=== PATIENT | male | born 1980 | race Caucasian/White ===

== ENCOUNTER 2021-07-29 17:30 | Inpatient (IN) | payer SELFPAY ==
[~2021-07-29] VITALS: Ht 182.9 cm; Wt 90.7 kg
[2021-07-29 17:00] VITALS: BP 131/67
[2021-07-29] MEDS ORDERED: WARF4TAB64 PO (18:34)
[2021-07-29 19:00] VITALS: BP 126/57
[2021-07-29] MEDS ORDERED: ELECTROLYTE (NON-ICU) PROTOCOL. MC PRN (19:00)
[2021-07-29] MEDS ORDERED: IV NORMAL SALINE 1000ML BAG 1,000 ML IV SCH (19:00)
[2021-07-29] MEDS ORDERED: ZOLPIDEM 5 MG TABLET. PO PRN (19:00)
[2021-07-29] MEDS ORDERED: PIP/TAZO PER PHARMACY MC PRN (19:00)
[2021-07-29] MEDS ORDERED: CALCIUM CARBONATE 500 MG TAB.CHEW PO PRN (19:00)
[2021-07-29] MEDS ORDERED: oxyCODONE IR 5 MG TABLET PO PRN (19:00)
[2021-07-29] MEDS ORDERED: ONDANSETRON PF 4 MG/2 ML VIAL. IVP PRN (19:00)
[2021-07-29] MEDS: MULTIVIT INFUSN,ADULT 4,VIT K 10 ML, THIAMINE INJ 100 MG, FOLIC ACID INJ 1 MG in IV NOR... IV SCH (20:06)
[2021-07-29] MEDS: CIPROFLOXACIN 400MG PREMIX 200 ML IV SCH (20:07)
[2021-07-29] MEDS: metroNIDAZOLE 500 MG TABLET PO SCH (20:07)
[2021-07-29] MEDS: oxyCODONE IR 5 MG TABLET PO PRN (20:07)
[2021-07-29] MEDS: SENNOSIDES/DOCUSATE 8.6/50MG TABLET. PO SCH (20:07)
[2021-07-29 20:11] LABS: BASO # 0.1 x10^3/uL (0.0-0.2); BASO % 1 % (0-3); EOS # 0.1 x10^3/uL (0.0-0.7); EOS % 1 % (0-3); LYMPH % 18 % (24-48); MEAN CORPUSCULAR HEMOGLOBIN 38 pg (25-35); MEAN CORPUSCULAR HGB CONC 36 g/dL (31-37); MEAN CORPUSCULAR VOLUME 106 fL (79-100); MONO # 1.3 x10^3/uL (0.0-1.1); MONO % 12 % (0-9); NEUT # 7.3 x10^3/uL (1.8-7.7); NEUT % 67 % (31-73); PLATELET COUNT 149 x10^3/uL (140-400); RED BLOOD COUNT 1.49 x10^6/uL (4.30-5.70); RED CELL DISTRIBUTION WIDTH 21.2 % (11.5-14.5); WHITE BLOOD COUNT 10.8 x10^3/uL (4.0-11.0)
[2021-07-29 20:17] LABS: HEMATOCRIT 15.7 % (39.0-53.0); HEMOGLOBIN 5.7 g/dL (13.0-17.5)
[2021-07-29 20:19] LABS: PROTHROMBIN TIME PATIENT 25.3 SEC (11.7-14.0)
[2021-07-29 20:38] LABS: PLT ESTIMATE ADEQUATE (ADEQUATE)
[2021-07-29 20:39] LABS: ANISOCYTOSIS MOD; HYPOCHROMIA SLIGHT
[2021-07-29 20:40] LABS: POLYCHROMASIA MOD
[2021-07-29 21:10] LABS: ALBUMIN 1.4 g/dL (3.4-5.0); ALBUMIN/GLOBULIN RATIO 0.4 (1.0-1.7); CALCIUM 6.6 mg/dL (8.5-10.1); CREATININE 0.9 mg/dL (0.7-1.3); GFR 92.1; POTASSIUM 3.1 mmol/L (3.5-5.1); TOTAL BILIRUBIN 14.9 mg/dL (0.2-1.0); TOTAL PROTEIN 5.4 g/dL (6.4-8.2)
[2021-07-29 23:00] VITALS: BP 110/50
--- NOTE | 2021-07-29 23:57 | RAD ---
EXAM: RIGHT UPPER QUADRANT ULTRASOUND. HISTORY: Abdominal pain, cirrhosis. COMPARISON: None. FINDINGS: Sonographic evaluation of the right upper quadrant was performed. Mild hepatic surface nodularity is consistent with cirrhotic change. Hepatic parenchymal hyperechogen icity is consistent with a component of diffuse hepatic steatosis. There are no focal lesions by ultr asound. There is a small amount of perihepatic ascites. The spleen is enlarged at 16.8 cm. Gallstones and biliary sludge are noted. There is no pericholecystic fluid or wall thickening. There is no sonographic Saul sign. The common duct measures 4 mm. The visualized portions of the head of the pancreas reveal no abnormality. The right kidney measures 11.1 cm. Cortical thickness and echogenicity are preserved. There is no hyd ronephrosis. The visualized portions of the abdominal aorta and inferior vena cava are grossly patent and normal i n caliber. IMPRESSION: 1. Morphologic changes of cirrhosis. Small ascites. Moderate splenomegaly. Next were 2. Cholelithiasis and biliary sludge. No clear changes of acute cholecystitis by ultrasound. Correlat e with other data. Electronically signed by: Claudio Boyer MD (07/29/2021 11:55 PM) LAURA
[2021-07-30] VITALS (16 sets, daily range): BP systolic 109–148; BP diastolic 43–66
[2021-07-30] MEDS: metroNIDAZOLE 500 MG TABLET PO SCH (06:06)
[2021-07-30 06:37] LABS: CLARITY,URINE CLEAR; COLOR,URINE ORANGE
[2021-07-30 06:46] LABS: BACTERIA,URINE 0 /HPF (0-FEW); RBC,URINE 0 /HPF (0-2); WBC,URINE 0 /HPF (0-4)
[2021-07-30] MEDS: VITAMIN B12,B9,B6 COMPLEX 1 TABLET. PO SCH (07:53)
[2021-07-30] MEDS: SENNOSIDES/DOCUSATE 8.6/50MG TABLET. PO SCH ×2 (07:53→20:28)
[2021-07-30] MEDS: CIPROFLOXACIN 400MG PREMIX 200 ML IV SCH (07:53)
[2021-07-30] MEDS ORDERED: SPIRONOLACTONE 25 MG TABLET PO SCH (09:00)
[2021-07-30 09:25] LABS: HEMATOCRIT 19.5 % (39.0-53.0); HEMOGLOBIN 6.8 g/dL (13.0-17.5)
--- NOTE | 2021-07-30 09:40 | NUR ---
SW following. Discussed with RN, pt from home, room air, NPO. GI following. Pt received blood and hgn still 6.8. Med Assist following for self pay status. SW will continue to follow.
--- NOTE | 2021-07-30 10:21 | PDOC2 ---
GI CONSULT Date of Service: DATE: 07/30/21 TIME: 10:02 Reason For Consult: Tbili 15.9, abd pain HPI: HPI: 41 y/o male evaluated at [facility] for bleeding from cheek laceration. H/o factor V Leiden on Warfarin prescribed by [facility]. At [facility]: WBC 12.6, Hgb 5.3, MCV 115, plt 175, Na 133, K 3, BUN 11, Cr 0.9, bili 15.2, direct 10.2, AST 133, ALT 32, Alk Phos 105, ammonia 25, lipase 232, COVID negative. CT w/ cholelithiasis w/ superimposed GB distention and wall thickening and surrounding stranding, suspected hepatic cirrhosis and changes related to portal hypertension, mildd diffuse bowel wall thickening due to presence os small ascites and mesenteric stranding, diverticulosis, splenomegaly and splenorenal shunt and prominent collateral vessels within mesentery and retroperitoneum. Here: INR is 2.4 and viral Hepatitis panel is negative. Iron sat 65, B12 >1700. US shows cirrhosis, small ascites, moderate splenomegaly, cholelithiasis and biliary sludge, and CBD 4mm. GI-brito, he reports h/o liver disease - "well alcohol's a part of it." H/o heavy drinking - sober since "before ." Has had some abdominal cramping and jaundice since around that time. Recalls previous paracentesis <5 years ago at [facility] - details unclear. No other information re: liver history. Denies obvious GI bleeding. Occasional reflux depending on what he eats improved w/ Tums PRN. No dysphagia, n/v, hematemesis, diarrhea, constipation, hematochezia, melena, or change in appetite or weight. No previous EGD or colonoscopy. No GB, pancreas, or PUD history. No NSAIDs. Reports home meds also include spironolactone, folate, and vitamin C. Additionally reports h/o "the valves in my legs don't work." PMH: PMH: per HPI FH: Family History: No pertinent hx (denies GI cancers) Social History: ALCOHOL: heavy (sober since 06/2021) ROS: GEN: Denies fevers, chills, sweats HEENT: Denies blurred vision, sore throat CV: Denies chest pain RESP: Denies shortness of air, cough GI: Per HPI : Denies hematuria, dysuria ENDO: Denies weight changes NEURO: Denies confusion, dizziness MSK: Denies weakness, joint pain/swelling SKIN: +jaundice +cheek wound/bleeding Vitals: Vitals: Vital Signs Date Time Temp Pulse Resp B/P (MAP) Pulse Ox O2 Delivery O2 Flow Rate FiO2 07/30/21 06:50 98.4 110 20 128/61 (83) 100 Room Air 98.4 Labs: Labs: Laboratory Tests Test 07/29/21 19:48 07/30/21 05:55 07/30/21 08:55 White Blood Count 10.8 x10^3/uL (4.0-11.0) Red Blood Count 1.49 x10^6/uL (4.30-5.70) Hemoglobin 5.7 g/dL (13.0-17.5) 6.8 g/dL (13.0-17.5) Hematocrit 15.7 % (39.0-53.0) 19.5 % (39.0-53.0) Mean Corpuscular Volume 106 fL (79-100) Mean Corpuscular Hemoglobin 38 pg (25-35) Mean Corpuscular Hemoglobin Concent 36 g/dL (31-37) Red Cell Distribution Width 21.2 % (11.5-14.5) Platelet Count 149 x10^3/uL (140-400) Neutrophils (%) (Auto) 67 % (31-73) Lymphocytes (%) (Auto) 18 % (24-48) Monocytes (%) (Auto) 12 % (0-9) Eosinophils (%) (Auto) 1 % (0-3) Basophils (%) (Auto) 1 % (0-3) Neutrophils # (Auto) 7.3 x10^3/uL (1.8-7.7) Lymphocytes # (Auto) 2.0 x10^3/uL (1.0-4.8) Monocytes # (Auto) 1.3 x10^3/uL (0.0-1.1) Eosinophils # (Auto) 0.1 x10^3/uL (0.0-0.7) Basophils # (Auto) 0.1 x10^3/uL (0.0-0.2) Platelet Estimate Adequate (ADEQUATE) Polychromasia Mod Hypochromasia Slight Basophilic Stippling Present Anisocytosis Mod Macrocytosis Slight Prothrombin Time 25.3 SEC (11.7-14.0) Prothromb Time International Ratio 2.4 (0.8-1.1) Activated Partial Thromboplast Time 51 SEC (24-38) Sodium Level 132 mmol/L (136-145) Potassium Level 3.1 mmol/L (3.5-5.1) Chloride Level 101 mmol/L (98-107) Carbon Dioxide Level 23 mmol/L (21-32) Anion Gap 8 (6-14) Blood Urea Nitrogen 12 mg/dL (8-26) Creatinine 0.9 mg/dL (0.7-1.3) Estimated GFR (Cockcroft-Gault) 92.1 BUN/Creatinine Ratio 13 (6-20) Glucose Level 107 mg/dL (70-99) Calcium Level 6.6 mg/dL (8.5-10.1) Iron Level 66 ug/dL (65-175) Total Iron Binding Capacity 102 ug/dL (250-450) Iron Saturation 65 % (15-34) Total Bilirubin 14.9 mg/dL (0.2-1.0) Aspartate Amino Transf (AST/SGOT) 103 U/L (15-37) Alanine Aminotransferase (ALT/SGPT) 32 U/L (16-63) Alkaline Phosphatase 93 U/L (46-116) Total Protein 5.4 g/dL (6.4-8.2) Albumin 1.4 g/dL (3.4-5.0) Albumin/Globulin Ratio 0.4 (1.0-1.7) Lipase 265 U/L (73-393) Vitamin B12 Level 1703 pg/mL (247-911) Hepatitis A IgM Antibody Nonreactive (Nonreactive) Hepatitis B Surface Antigen Nonreactive (Nonreactive) Hepatitis B Core IgM Antibody Nonreactive (Nonreactive) Hepatitis C IgG Antibody Nonreactive (Nonreactive) HIV (1&2) Antibody Screen Nonreactive (Nonreactive) Urine Collection Type Unknown Urine Color [place] Urine Clarity Clear Urine pH (<5.0-8.0) Urine Specific [place] (1.000-1.030) Urine Protein mg/dL (NEG-TRACE) Urine Glucose (UA) mg/dL (NEG) Urine Ketones (Stick) mg/dL (NEG) Urine Blood (NEG) Urine Nitrite (NEG) Urine Bilirubin (NEG) Urine Urobilinogen Dipstick mg/dL (0.2 mg/dL) Urine Leukocyte Esterase (NEG) Urine RBC 0 /HPF (0-2) Urine WBC 0 /HPF (0-4) Urine Squamous Epithelial Cells Occ /LPF Urine Bacteria 0 /HPF (0-FEW) Allergies: Coded Allergies: Penicillins (Verified Allergy, Intermediate, 07/29/21) shellfish derived (Verified Allergy, Intermediate, 07/29/21) Medications: Current Medications Medications (Trade) Dose Ordered Sig/Barbara Route PRN Reason Start Time Stop Time Status Last Admin Dose Admin Multivitamins 10 ml/Thiamine HCl 100 mg/Folic Acid 1 mg/Sodium Chloride 1,011.2 ml @ 100 mls/ hr QHS IV 07/29/21 19:00 08/03/21 07:07 07/29/21 20:06 Vitamin B Complex (Folbic Tablet) 1 tab DAILY PO 07/30/21 09:00 07/30/21 07:53 Sodium Chloride 1,000 ml @ 100 mls/hr Q10H IV 07/29/21 19:00 07/30/21 04:59 DC 07/29/21 20:06 Oxycodone HCl (Roxicodone) 10 mg PRN Q4HRS PRN PO MODERATE PAIN, SEVERE PAIN 07/29/21 19:00 07/29/21 20:07 Senna/Docusate Sodium (Senna Plus) 1 tab BID PO 07/29/21 21:00 07/30/21 07:53 Spironolactone (Aldactone) 25 mg DAILY PO 07/30/21 09:00 07/30/21 07:54 Ciprofloxacin/ Dextrose 200 ml @ 200 mls/hr Q12HR IV 07/29/21 21:00 07/30/21 07:53 Metronidazole (Flagyl) 500 mg Q8HRS PO 07/29/21 22:00 07/30/21 06:06 Imaging: Imaging: Abd US FINDINGS: Sonographic evaluation of the right upper quadrant was performed. Mild hepatic surface nodularity is consistent with cirrhotic change. Hepatic parenchymal hyperechogenicity is consistent with a component of diffuse hepatic steatosis. There are no focal lesions by ultrasound. There is a small amount of perihepatic ascites. The spleen is enlarged at 16.8 cm. Gallstones and biliary sludge are noted. There is no pericholecystic fluid or wall thickening. There is no sonographic Saul sign. The common duct measures 4 mm. The visualized portions of the head of the pancreas reveal no abnormality. The right kidney measures 11.1 cm. Cortical thickness and echogenicity are preserved. There is no hydronephrosis. The visualized portions of the abdominal aorta and inferior vena cava are grossly patent and normal in caliber. IMPRESSION: 1. Morphologic changes of cirrhosis. Small ascites. Moderate splenomegaly. Next were 2. Cholelithiasis and biliary sludge. No clear changes of acute cholecystitis by ultrasound. Correlate with other data. PE: GEN: appears chronically ill HEENT: Atraumatic, +sclerae icteric LUNGS: CTAB anteriorly HEART: tachycardic ABD: some distention, soft, not particularly tender EXTREMITY: BLE w/ edema/chronic skin changes SKIN: +jaundice, telangiectasia (chest, cheeks) NEURO/PSYCH: A & O 3 - bit difficult to rouse, but then participated appropriately in interview A/P: A/P: Suspected alcoholic hepatitis/cirrhosis/portal hypertension Profound anemia - no obvious GI bleeding, iron sat elevated Occasional reflux CRC screen - none/average risk Cholelithiasis, GB sludge, normal CBD H/o Factor V Leiden on Warfarin COVID negative -- Check hemachromatosis for completeness. Agree w/ transfusion plans. Denies obvious GI bleeding. Observe, follow labs. Withdrawal precautions per primary. ?need for antibiotics Low suspicion for acute cholecystitis. Encouraged sobriety long-term. ABIGAIL ALVAREZ Jul 30, 2021 10:21
[2021-07-30] MEDS: oxyCODONE IR 5 MG TABLET PO PRN ×3 (11:03→20:39)
[2021-07-30] MEDS ORDERED: LIDO:MAALOX 1:1 20 ML SINGLE DOSE. PO PRN (12:30)
--- NOTE | 2021-07-30 12:48 | PDOC1 ---
History and Physical Date of Service: DOS: DATE: 07/30/21 TIME: 12:36 Chief Complaint: Chief Complain: wound check History of Present Illness: HPI: Patient is a 41-year-old white male presented to outside emergency room yesterday due to a wound on his left cheek that it is continuing to bleed; he does have a history of factor V Leiden on home Coumadin. She was actually seen in that same emergency room on July 21 where he was provided Dermabond and bleeding was controlled when he left the ER there. During that presentation he was noted to be very jaundiced and the labs were consistent with liver failure. It was recommended he be transferred here for further evaluation but he left AGAINST MEDICAL ADVICE at that time. When he presented yesterday he was notably still jaundiced report that it was even worse had worsening edema in his lower extremities. Labs consistent with ongoing liver failure. He was agreeable to transfer here this time for further evaluation. When I evaluated the patient he was resting in bed complaining of some abdominal pain. Patient said that his alcohol use really has not been any since the new year. He does have a long history of alcohol use and knows he has liver problems but has never seen a doctor for them. Thinks he may have had a paracentesis sometime? Past Medical/Surgical History: PMH/PSH: Factor V Leiden Allergies: Allergies: Coded Allergies: Penicillins (Verified Allergy, Intermediate, 07/29/21) shellfish derived (Verified Allergy, Intermediate, 07/29/21) Family History: Family History: Hypertension Social History: Social History: Previous alcohol use. Denies drug or tobacco use Current Medications: Current Medications Current Medications Multivitamins 10 ml/Thiamine HCl 100 mg/Folic Acid 1 mg/Sodium Chloride 1,011.2 ml @ 100 mls/ hr QHS IV Last administered on 07/29/21at 20:06; Start 07/29/21 at 19:00; Stop 08/03/21 at 07:07 Multivitamins (Thera M Plus) 1 tab DAILY PO ; Start 08/03/21 at 09:00 Folic Acid (Folic Acid) 1 mg DAILY PO ; Start 08/03/21 at 09:00; Status UNV Thiamine Mononitrate (Vitamin B-1) 100 mg DAILY PO ; Start 08/03/21 at 09:00 Lorazepam (Ativan) 4 mg PRN Q1HR PRN PO For CIWA 8-14; Start 07/29/21 at 18:45 Lorazepam (Ativan) 8 mg PRN Q1HR PRN PO For CIWA 15 or greater; Start 07/29/21 at 18:45 Vitamin B Complex (Folbic Tablet) 1 tab DAILY PO Last administered on 07/30/21at 07:53; Start 07/30/21 at 09:00 Folic Acid (Folic Acid) 1 mg DAILY PO ; Start 08/03/21 at 09:00 Piperacillin Sod/ Tazobactam Sod (Zosyn Per Pharmacy) 1 each PRN DAILY PRN MC SEE COMMENTS; Start 07/29/21 at 19:00; Stop 07/29/21 at 18:58; Status DC Sodium Chloride 1,000 ml @ 100 mls/hr Q10H IV Last administered on 07/29/21at 20:06; Start 07/29/21 at 19:00; Stop 07/30/21 at 04:59; Status DC Ondansetron HCl (Zofran) 4 mg PRN Q6HRS PRN IVP NAUSEA/VOMITING; Start 07/29/21 at 19:00 Calcium Carbonate/ Glycine (Tums) 500 mg PRN Q3HRS PRN PO UPSET STOMACH; Start 07/29/21 at 19:00 Zolpidem Tartrate (Ambien) 5 mg PRN QHS PRN PO INSOMNIA, MAY REPEAT IN 1HR; Start 07/29/21 at 19:00 Info (Non-Icu Electrolyte Protocol) 1 ea PRN DAILY PRN MC SEE COMMENTS; Start 07/29/21 at 19:00 Oxycodone HCl (Roxicodone) 5 mg PRN Q4HRS PRN PO MILD PAIN, 1ST CHOICE; Start 07/29/21 at 19:00 Oxycodone HCl (Roxicodone) 10 mg PRN Q4HRS PRN PO MODERATE PAIN, SEVERE PAIN Last administered on 07/30/21at 11:03; Start 07/29/21 at 19:00 Senna/Docusate Sodium (Senna Plus) 1 tab BID PO Last administered on 07/30/21at 07:53; Start 07/29/21 at 21:00 Spironolactone (Aldactone) 25 mg DAILY PO Last administered on 07/30/21at 07:54; Start 07/30/21 at 09:00 Ciprofloxacin/ Dextrose 200 ml @ 200 mls/hr Q12HR IV Last administered on 07/30/21at 07:53; Start 07/29/21 at 21:00; Stop 07/30/21 at 11:40; Status DC Metronidazole (Flagyl) 500 mg Q8HRS PO Last administered on 07/30/21at 06:06; Start 07/29/21 at 22:00; Stop 07/30/21 at 11:40; Status DC Multi-Ingredient Mouthwash/Gargle (Gi Cocktail) 20 ml PRN QID PRN PO CHEST PAIN; Start 07/30/21 at 12:30 Active Scripts Active Reported Warfarin Sodium 4 Mg Tablet 4 Mg PO DAILY ROS: Review of Systems Review of System Unless noted in HPI 14 point review of systems was negative Physical Exam: Vital Signs: Vital Signs Date Time Temp Pulse Resp B/P (MAP) Pulse Ox O2 Delivery O2 Flow Rate FiO2 07/30/21 12:17 98.9 108 30 135/56 98.9 07/30/21 12:06 98 Room Air Physcial Exam: GEN: No apparent distress. Alert and oriented HEENT: Erythematous rash on forehead and cheeks kind of obscured by his lanza EYES: Extraocular muscles are intact, pupil are equally round and reactive to light and accommodation MUSCULOSKELETAL: Well developed , well nourished, good range of motion ENDOCRINE: No thyromegaly was palpated LYMPHATICS: No cervical chain or axillary nodes were noted HEMATOPOIETIC: No bruising NECK: Supple, no JVD, no thyromegaly was noted LUNGS: Clear to auscultation in all lung [place] without rhonchi or wheezing HEART: RRR, S!, S2 present. Peripheral pulses intact, no obvious murmurs noted ABDOMEN: Soft, nontender. Positive bowel sounds, no organomegaly, normal bowel sounds EXTREMITIES: Bilateral lower extremity edema up to the level of the scrotum NEUROLOGIC: Normal speech and tone. A&O x 3, moves all extremities, no obvious focal deficits PSYCHIATRIC: Normal affect, normal mood. Stable SKIN: Jaundiced throughout VASCULAR: Good capillary refill, neurovascular bundle appears to be intact Labs: Labs: Laboratory Tests Test 07/29/21 19:48 07/30/21 05:55 07/30/21 08:55 White Blood Count 10.8 x10^3/uL (4.0-11.0) Red Blood Count 1.49 x10^6/uL (4.30-5.70) Hemoglobin 5.7 g/dL (13.0-17.5) 6.8 g/dL (13.0-17.5) Hematocrit 15.7 % (39.0-53.0) 19.5 % (39.0-53.0) Mean Corpuscular Volume 106 fL (79-100) Mean Corpuscular Hemoglobin 38 pg (25-35) Mean Corpuscular Hemoglobin Concent 36 g/dL (31-37) Red Cell Distribution Width 21.2 % (11.5-14.5) Platelet Count 149 x10^3/uL (140-400) Neutrophils (%) (Auto) 67 % (31-73) Lymphocytes (%) (Auto) 18 % (24-48) Monocytes (%) (Auto) 12 % (0-9) Eosinophils (%) (Auto) 1 % (0-3) Basophils (%) (Auto) 1 % (0-3) Neutrophils # (Auto) 7.3 x10^3/uL (1.8-7.7) Lymphocytes # (Auto) 2.0 x10^3/uL (1.0-4.8) Monocytes # (Auto) 1.3 x10^3/uL (0.0-1.1) Eosinophils # (Auto) 0.1 x10^3/uL (0.0-0.7) Basophils # (Auto) 0.1 x10^3/uL (0.0-0.2) Platelet Estimate Adequate (ADEQUATE) Polychromasia Mod Hypochromasia Slight Basophilic Stippling Present Anisocytosis Mod Macrocytosis Slight Prothrombin Time 25.3 SEC (11.7-14.0) Prothromb Time International Ratio 2.4 (0.8-1.1) Activated Partial Thromboplast Time 51 SEC (24-38) Sodium Level 132 mmol/L (136-145) Potassium Level 3.1 mmol/L (3.5-5.1) Chloride Level 101 mmol/L (98-107) Carbon Dioxide Level 23 mmol/L (21-32) Anion Gap 8 (6-14) Blood Urea Nitrogen 12 mg/dL (8-26) Creatinine 0.9 mg/dL (0.7-1.3) Estimated GFR (Cockcroft-Gault) 92.1 BUN/Creatinine Ratio 13 (6-20) Glucose Level 107 mg/dL (70-99) Calcium Level 6.6 mg/dL (8.5-10.1) Iron Level 66 ug/dL (65-175) Total Iron Binding Capacity 102 ug/dL (250-450) Iron Saturation 65 % (15-34) Total Bilirubin 14.9 mg/dL (0.2-1.0) Aspartate Amino Transf (AST/SGOT) 103 U/L (15-37) Alanine Aminotransferase (ALT/SGPT) 32 U/L (16-63) Alkaline Phosphatase 93 U/L (46-116) Total Protein 5.4 g/dL (6.4-8.2) Albumin 1.4 g/dL (3.4-5.0) Albumin/Globulin Ratio 0.4 (1.0-1.7) Lipase 265 U/L (73-393) Vitamin B12 Level 1703 pg/mL (247-911) Hepatitis A IgM Antibody Nonreactive (Nonreactive) Hepatitis B Surface Antigen Nonreactive (Nonreactive) Hepatitis B Core IgM Antibody Nonreactive (Nonreactive) Hepatitis C IgG Antibody Nonreactive (Nonreactive) HIV (1&2) Antibody Screen Nonreactive (Nonreactive) Urine Collection Type Unknown Urine Color [place] Urine Clarity Clear Urine pH (<5.0-8.0) Urine Specific [place] (1.000-1.030) Urine Protein mg/dL (NEG-TRACE) Urine Glucose (UA) mg/dL (NEG) Urine Ketones (Stick) mg/dL (NEG) Urine Blood (NEG) Urine Nitrite (NEG) Urine Bilirubin (NEG) Urine Urobilinogen Dipstick mg/dL (0.2 mg/dL) Urine Leukocyte Esterase (NEG) Urine RBC 0 /HPF (0-2) Urine WBC 0 /HPF (0-4) Urine Squamous Epithelial Cells Occ /LPF Urine Bacteria 0 /HPF (0-FEW) Laboratory Tests Test 07/29/21 19:48 07/30/21 05:55 07/30/21 08:55 White Blood Count 10.8 x10^3/uL (4.0-11.0) Red Blood Count 1.49 x10^6/uL (4.30-5.70) Hemoglobin 5.7 g/dL (13.0-17.5) 6.8 g/dL (13.0-17.5) Hematocrit 15.7 % (39.0-53.0) 19.5 % (39.0-53.0) Mean Corpuscular Volume 106 fL (79-100) Mean Corpuscular Hemoglobin 38 pg (25-35) Mean Corpuscular Hemoglobin Concent 36 g/dL (31-37) Red Cell Distribution Width 21.2 % (11.5-14.5) Platelet Count 149 x10^3/uL (140-400) Neutrophils (%) (Auto) 67 % (31-73) Lymphocytes (%) (Auto) 18 % (24-48) Monocytes (%) (Auto) 12 % (0-9) Eosinophils (%) (Auto) 1 % (0-3) Basophils (%) (Auto) 1 % (0-3) Neutrophils # (Auto) 7.3 x10^3/uL (1.8-7.7) Lymphocytes # (Auto) 2.0 x10^3/uL (1.0-4.8) Monocytes # (Auto) 1.3 x10^3/uL (0.0-1.1) Eosinophils # (Auto) 0.1 x10^3/uL (0.0-0.7) Basophils # (Auto) 0.1 x10^3/uL (0.0-0.2) Platelet Estimate Adequate (ADEQUATE) Polychromasia Mod Hypochromasia Slight Basophilic Stippling Present Anisocytosis Mod Macrocytosis Slight Prothrombin Time 25.3 SEC (11.7-14.0) Prothromb Time International Ratio 2.4 (0.8-1.1) Activated Partial Thromboplast Time 51 SEC (24-38) Sodium Level 132 mmol/L (136-145) Potassium Level 3.1 mmol/L (3.5-5.1) Chloride Level 101 mmol/L (98-107) Carbon Dioxide Level 23 mmol/L (21-32) Anion Gap 8 (6-14) Blood Urea Nitrogen 12 mg/dL (8-26) Creatinine 0.9 mg/dL (0.7-1.3) Estimated GFR (Cockcroft-Gault) 92.1 BUN/Creatinine Ratio 13 (6-20) Glucose Level 107 mg/dL (70-99) Calcium Level 6.6 mg/dL (8.5-10.1) Iron Level 66 ug/dL (65-175) Total Iron Binding Capacity 102 ug/dL (250-450) Iron Saturation 65 % (15-34) Total Bilirubin 14.9 mg/dL (0.2-1.0) Aspartate Amino Transf (AST/SGOT) 103 U/L (15-37) Alanine Aminotransferase (ALT/SGPT) 32 U/L (16-63) Alkaline Phosphatase 93 U/L (46-116) Total Protein 5.4 g/dL (6.4-8.2) Albumin 1.4 g/dL (3.4-5.0) Albumin/Globulin Ratio 0.4 (1.0-1.7) Lipase 265 U/L (73-393) Vitamin B12 Level 1703 pg/mL (247-911) Hepatitis A IgM Antibody Nonreactive (Nonreactive) Hepatitis B Surface Antigen Nonreactive (Nonreactive) Hepatitis B Core IgM Antibody Nonreactive (Nonreactive) Hepatitis C IgG Antibody Nonreactive (Nonreactive) HIV (1&2) Antibody Screen Nonreactive (Nonreactive) Urine Collection Type Unknown Urine Color [place] Urine Clarity Clear Urine pH (<5.0-8.0) Urine Specific [place] (1.000-1.030) Urine Protein mg/dL (NEG-TRACE) Urine Glucose (UA) mg/dL (NEG) Urine Ketones (Stick) mg/dL (NEG) Urine Blood (NEG) Urine Nitrite (NEG) Urine Bilirubin (NEG) Urine Urobilinogen Dipstick mg/dL (0.2 mg/dL) Urine Leukocyte Esterase (NEG) Urine RBC 0 /HPF (0-2) Urine WBC 0 /HPF (0-4) Urine Squamous Epithelial Cells Occ /LPF Urine Bacteria 0 /HPF (0-FEW) Assessment/Plan Assessment/Plan Liver cirrhosis suspect alcoholic. Work-up for hemochromatosis. Anemia history of alcohol use. Small volume ascites. Hx Factor 5 Leiden on home Warfarin -Patient transferred from outside emergency room yesterday for further evaluation of liver failure -Notably low hemoglobin. Transfuse and recheck. Basic anemia work-up -LFTs elevated throughout. Consult to GI. -Mild ascites and lower extremity edema. Will start patient on low-dose Aldactone and increase as needed -Should ascites worsening happy to perform bedside paracentesis if needed -Low hemoglobin and INR 2.4 we will hold off warfarin for the moment. Daily INR checks. No apparent bleeding -Check abdominal ultrasound -Home meds resumed as indicated -We will at least start DVT prophylaxis -Salt restricted fluid restricted diet Justifications for Admission Other Justification MARIBETH STRONG MD Jul 30, 2021 12:48
[2021-07-30] MEDS: MULTIVIT INFUSN,ADULT 4,VIT K 10 ML, THIAMINE INJ 100 MG, FOLIC ACID INJ 1 MG in IV NOR... IV SCH (20:28)
[2021-07-31 03:00] VITALS: BP 151/58
[2021-07-31 06:10] LABS: PROTHROMBIN TIME PATIENT 25.2 SEC (11.7-14.0)
[2021-07-31] MEDS: oxyCODONE IR 5 MG TABLET PO PRN ×4 (06:40→23:14)
[2021-07-31 07:00] VITALS: BP 132/56
[2021-07-31] MEDS: SENNOSIDES/DOCUSATE 8.6/50MG TABLET. PO SCH ×2 (09:00→21:07)
[2021-07-31] MEDS: VITAMIN B12,B9,B6 COMPLEX 1 TABLET. PO SCH (09:19)
[2021-07-31] MEDS: FOLIC ACID 1 MG TABLET. PO SCH (09:19)
[2021-07-31] MEDS: MULTIVITAMIN with MINERAL TABLET. PO SCH (09:19)
[2021-07-31] MEDS: THIAMINE 100 MG TABLET. PO SCH (09:19)
[2021-07-31] MEDS: SPIRONOLACTONE 25 MG TABLET PO SCH (09:20)
--- NOTE | 2021-07-31 10:03 | PDOC ---
Date of Service: DATE: 07/31/21 TIME: 09:53 Subjective: Subjective: Doing okay. Pain across upper abdomen w/ movement. Tolerating diet w/o abdominal pain or n/v. Reports blood in urine but "I'm colorblind." Objective: Vital Signs: Vital Signs Date Time Temp Pulse Resp B/P (MAP) Pulse Ox O2 Delivery O2 Flow Rate FiO2 07/31/21 09:19 Room Air 07/31/21 07:00 98.6 108 17 132/56 (81) 95 98.6 Labs: Laboratory Tests Test 07/31/21 05:05 Prothrombin Time 25.2 SEC Prothromb Time International Ratio 2.3 PE: GEN: NAD LUNGS: CTAB HEART: mildly tachycardic ABD: not particularly tender, soft, maybe mild distention (stable) EXTREMITY: BLE edema/chronic skin changes SKIN: +jaundice +telangiectasias NEURO/PSYCH: A & O 3 A/P: Suspected alcoholic hepatitis/cirrhosis Macrocytic anemia - s/p transfusions yesterday, no obvious GI bleeding - not B12 or iron deficient ?hematuria H/o Factor V Leiden - Warfarin held -- Rechecking labs after transfusion, HFE pending. Continue salt restriction, Aldactone, sobriety. Empiric acid-hide cleaner. Will d/w Dr. Vargas re: resuming Warfarin. Justicifation of Admission Dx: Justifications for Admission: Justification of Admission Dx: Yes ABIGAIL ALVAREZ Jul 31, 2021 10:03
[2021-07-31 10:04] LABS: HEMOGLOBIN 7.7 g/dL (13.0-17.5); RED BLOOD COUNT 2.22 x10^6/uL (4.30-5.70); RED CELL DISTRIBUTION WIDTH 22.2 % (11.5-14.5); WHITE BLOOD COUNT 13.8 x10^3/uL (4.0-11.0)
[2021-07-31 10:12] LABS: ALBUMIN 1.5 g/dL (3.4-5.0); ALBUMIN/GLOBULIN RATIO 0.4 (1.0-1.7); CALCIUM 6.2 mg/dL (8.5-10.1); CREATININE 0.8 mg/dL (0.7-1.3); GFR 105.5; POTASSIUM 3.5 mmol/L (3.5-5.1); TOTAL BILIRUBIN 17.2 mg/dL (0.2-1.0); TOTAL PROTEIN 5.5 g/dL (6.4-8.2)
[2021-07-31 11:00] VITALS: BP 127/49
[2021-07-31] MEDS: PANTOPRAZOLE 40 MG TABLET.DR. PO SCH (12:21)
--- NOTE | 2021-07-31 12:45 | PDOC ---
[employer] PROGRESS NOTE Date of Service DOS: DATE: 07/31/21 TIME: 12:44 Chief Complaint Chief Complaint Liver cirrhosis suspect alcoholic. Work-up for hemochromatosis. Anemia history of alcohol use. Small volume ascites. Hx Factor 5 Leiden on home Warfarin -Patient transferred from outside emergency room yesterday for further evaluation of liver failure -Notably low hemoglobin. Transfuse and recheck. Basic anemia work-up -LFTs elevated throughout. Consult to GI. -Mild ascites and lower extremity edema. Will start patient on low-dose Aldactone and increase as needed -Should ascites worsening happy to perform bedside paracentesis if needed -Low hemoglobin and INR 2.4 we will hold off warfarin for the moment. Daily INR checks. No apparent bleeding -Check abdominal ultrasound -Home meds resumed as indicated -We will at least start DVT prophylaxis -Salt restricted fluid restricted diet History of Present Illness History of Present Illness 07/31 Patient evaluated examined at bedside. He was resting in bed reporting some abdominal pain. The pain interestingly not much associated with food as it is movement. Will resume warfarin today with improved hemoglobin. Hemochromatosis work-up pending. Closely monitor for withdrawal. Plan of care discussed with bedside RN. Vitals/I&O Vitals/I&O: Vital Signs Date Time Temp Pulse Resp B/P (MAP) Pulse Ox O2 Delivery O2 Flow Rate FiO2 07/31/21 11:00 98.1 111 17 127/49 (75) 95 Room Air 98.1 I & O 07/30/21 07/30/21 07/31/21 15:00 23:00 07:00 Intake Total 300 ml 500 ml 242 ml Output Total 150 ml 400 ml Balance 150 ml 100 ml 242 ml Physical Exam General: Alert, Oriented X3, Cooperative Heart: Regular rate, Normal S1, Normal S2 Lungs: Clear Abdomen: Other (Bandlike pain and upper abdomen exacerbated by movement) Extremities: Other (Bilateral lower extremity edema) Skin: No significant lesion Labs Labs: Laboratory Tests Test 07/31/21 05:05 White Blood Count 13.8 x10^3/uL (4.0-11.0) Red Blood Count 2.22 x10^6/uL (4.30-5.70) Hemoglobin 7.7 g/dL (13.0-17.5) Hematocrit 23.0 % (39.0-53.0) Mean Corpuscular Volume 104 fL (79-100) Mean Corpuscular Hemoglobin 35 pg (25-35) Mean Corpuscular Hemoglobin Concent 34 g/dL (31-37) Red Cell Distribution Width 22.2 % (11.5-14.5) Platelet Count 133 x10^3/uL (140-400) Prothrombin Time 25.2 SEC (11.7-14.0) Prothromb Time International Ratio 2.3 (0.8-1.1) Sodium Level 128 mmol/L (136-145) Potassium Level 3.5 mmol/L (3.5-5.1) Chloride Level 98 mmol/L (98-107) Carbon Dioxide Level 20 mmol/L (21-32) Anion Gap 10 (6-14) Blood Urea Nitrogen 16 mg/dL (8-26) Creatinine 0.8 mg/dL (0.7-1.3) Estimated GFR (Cockcroft-Gault) 105.5 BUN/Creatinine Ratio 20 (6-20) Glucose Level 71 mg/dL (70-99) Calcium Level 6.2 mg/dL (8.5-10.1) Total Bilirubin 17.2 mg/dL (0.2-1.0) Aspartate Amino Transf (AST/SGOT) 119 U/L (15-37) Alanine Aminotransferase (ALT/SGPT) 33 U/L (16-63) Alkaline Phosphatase 97 U/L (46-116) Total Protein 5.5 g/dL (6.4-8.2) Albumin 1.5 g/dL (3.4-5.0) Albumin/Globulin Ratio 0.4 (1.0-1.7) Comment Review of Relevant I have reviewed the following items roberto (where applicable) has been applied. Medications: Current Medications Medications (Trade) Dose Ordered Sig/Barbara Route PRN Reason Start Time Stop Time Status Last Admin Dose Admin Multivitamins (Thera M Plus) 1 tab DAILY PO 07/31/21 09:00 07/31/21 09:19 Thiamine Mononitrate (Vitamin B-1) 100 mg DAILY PO 07/31/21 09:00 07/31/21 09:19 Folic Acid (Folic Acid) 1 mg DAILY PO 07/31/21 09:00 07/31/21 09:19 Spironolactone (Aldactone) 50 mg DAILY PO 07/31/21 09:00 07/31/21 09:20 Pantoprazole Sodium (Protonix) 40 mg DAILYAC PO 07/31/21 10:30 07/31/21 12:21 Justifications for Admission Other Justification MARIBETH STRONG MD Jul 31, 2021 12:45
[2021-07-31 15:00] VITALS: BP 138/61
[2021-07-31] MEDS: WARFARIN 4 MG TABLET. PO SCH (16:52)
[2021-07-31 19:00] VITALS: BP 124/59
[2021-07-31 23:00] VITALS: BP 126/58
[2021-08-01 05:14] LABS: PROTHROMBIN TIME PATIENT 27.2 SEC (11.7-14.0)
[2021-08-01 07:00] VITALS: BP 137/50
[2021-08-01] MEDS: MULTIVITAMIN with MINERAL TABLET. PO SCH (08:47)
[2021-08-01] MEDS: PANTOPRAZOLE 40 MG TABLET.DR. PO SCH (08:47)
[2021-08-01] MEDS: FOLIC ACID 1 MG TABLET. PO SCH (08:47)
[2021-08-01] MEDS: SENNOSIDES/DOCUSATE 8.6/50MG TABLET. PO SCH ×2 (08:47→20:11)
[2021-08-01] MEDS: SPIRONOLACTONE 25 MG TABLET PO SCH (08:47)
[2021-08-01] MEDS: VITAMIN B12,B9,B6 COMPLEX 1 TABLET. PO SCH (08:47)
[2021-08-01] MEDS: THIAMINE 100 MG TABLET. PO SCH (08:47)
[2021-08-01] MEDS: oxyCODONE IR 5 MG TABLET PO PRN ×4 (08:48→22:06)
--- NOTE | 2021-08-01 09:59 | PDOC ---
Date of Service: DATE: 08/01/21 TIME: 09:54 Subjective: Subjective: Upper abdominal discomfort "just when I'm sitting" and worse w/ movement, no change with eating or stooling. Some shortness of breath today. Objective: Objective: On Warfarin, spironolactone, pantoprazole. Taking oxycodone for pain. Vital Signs: Vital Signs Date Time Temp Pulse Resp B/P (MAP) Pulse Ox O2 Delivery O2 Flow Rate FiO2 08/01/21 07:00 98.5 109 20 137/50 (79) 95 Room Air 98.5 Labs: Laboratory Tests Test 08/01/21 04:45 Prothrombin Time 27.2 SEC Prothromb Time International Ratio 2.6 PE: GEN: NAD LUNGS: clear anteriorly HEART: mildly tachycardic ABD: mild discomfort upper abdomen, still soft and not much distention NEURO/PSYCH: A & O 3 A/P: Suspected alcoholic hepatitis/cirrhosis Leukocytosis, macrocytic anemia (better after transfusion), hyponatremia - last labs yesterday Shortness of breath H/o Factor V Leiden -- Recheck labs, will review c/o upper abdominal discomfort issue w/ Dr. Vargas - ?muscular? - has GI cocktail ordered, could try this. Justicifation of Admission Dx: Justifications for Admission: Justification of Admission Dx: Yes ABIGAIL ALVAREZ Aug 01, 2021 09:59
[2021-08-01 11:00] VITALS: BP 127/55
--- NOTE | 2021-08-01 11:24 | NUR ---
SW following. Discussed with RN, pt from home, room air, regular diet, COVID-19 negative. GI following. Sodium dropped today. Med Assist following for self pay status. SW will continue to follow.
[2021-08-01 12:45] LABS: ALBUMIN 1.5 g/dL (3.4-5.0); ALBUMIN/GLOBULIN RATIO 0.4 (1.0-1.7); CALCIUM 6.4 mg/dL (8.5-10.1); CREATININE 0.9 mg/dL (0.7-1.3); GFR 92.1; HEMATOCRIT 21.7 % (39.0-53.0); HEMOGLOBIN 7.3 g/dL (13.0-17.5); POTASSIUM 3.3 mmol/L (3.5-5.1); RED BLOOD COUNT 2.1 x10^6/uL (4.30-5.70); RED CELL DISTRIBUTION WIDTH 22.9 % (11.5-14.5); TOTAL BILIRUBIN 15.5 mg/dL (0.2-1.0); TOTAL PROTEIN 5.3 g/dL (6.4-8.2); WHITE BLOOD COUNT 13.8 x10^3/uL (4.0-11.0)
[2021-08-01] MEDS: diphenhydrAMINE HCL 25 MG CAPSULE PO PRN ×3 (13:33→22:06)
[2021-08-01 15:00] VITALS: BP 137/50
[2021-08-01] MEDS: WARFARIN 4 MG TABLET. PO SCH (16:36)
--- NOTE | 2021-08-01 17:44 | PDOC ---
[employer] PROGRESS NOTE Date of Service DOS: DATE: 08/01/21 TIME: 17:43 Chief Complaint Chief Complaint Liver cirrhosis suspect alcoholic. Work-up for hemochromatosis. Anemia history of alcohol use. Small volume ascites. Hx Factor 5 Leiden on home Warfarin -Patient transferred from outside emergency room yesterday for further evaluation of liver failure -Notably low hemoglobin. Transfuse and recheck. Basic anemia work-up -LFTs elevated throughout. Consult to GI. -Mild ascites and lower extremity edema. Will start patient on low-dose Aldactone and increase as needed -Should ascites worsening happy to perform bedside paracentesis if needed -Low hemoglobin and INR 2.4 we will hold off warfarin for the moment. Daily INR checks. No apparent bleeding -Check abdominal ultrasound -Home meds resumed as indicated -We will at least start DVT prophylaxis -Salt restricted fluid restricted diet History of Present Illness History of Present Illness 08/01 Patient evaluated at bedside. Complaining of bandlike abdominal pain try GI cocktail please. Benadryl for rash. Okay with warfarin back on. Still will hemochromatosis work-up pending. Sodium a bit lower today today we will just keep a close eye on this for the moment. Recheck labs in the morning. 07/31 Patient evaluated examined at bedside. He was resting in bed reporting some abdominal pain. The pain interestingly not much associated with food as it is movement. Will resume warfarin today with improved hemoglobin. Hemochromatosis work-up pending. Closely monitor for withdrawal. Plan of care discussed with bedside RN. Vitals/I&O Vitals/I&O: Vital Signs Date Time Temp Pulse Resp B/P (MAP) Pulse Ox O2 Delivery O2 Flow Rate FiO2 08/01/21 11:00 98.4 111 20 127/55 (79) 96 Room Air 98.4 I & O 07/31/21 07/31/21 08/01/21 15:00 23:00 07:00 Intake Total 300 ml 200 ml Balance 300 ml 200 ml Physical Exam General: Alert, Oriented X3, Cooperative Heart: Regular rate, Normal S1, Normal S2 Lungs: Clear Abdomen: Other (Bandlike pain and upper abdomen exacerbated by movement) Extremities: Other (Bilateral lower extremity edema) Skin: No significant lesion Labs Labs: Laboratory Tests Test 08/01/21 04:45 White Blood Count 13.8 x10^3/uL (4.0-11.0) Red Blood Count 2.10 x10^6/uL (4.30-5.70) Hemoglobin 7.3 g/dL (13.0-17.5) Hematocrit 21.7 % (39.0-53.0) Mean Corpuscular Volume 103 fL (79-100) Mean Corpuscular Hemoglobin 35 pg (25-35) Mean Corpuscular Hemoglobin Concent 34 g/dL (31-37) Red Cell Distribution Width 22.9 % (11.5-14.5) Platelet Count 116 x10^3/uL (140-400) Prothrombin Time 27.2 SEC (11.7-14.0) Prothromb Time International Ratio 2.6 (0.8-1.1) Sodium Level 126 mmol/L (136-145) Potassium Level 3.3 mmol/L (3.5-5.1) Chloride Level 97 mmol/L (98-107) Carbon Dioxide Level 21 mmol/L (21-32) Anion Gap 8 (6-14) Blood Urea Nitrogen 19 mg/dL (8-26) Creatinine 0.9 mg/dL (0.7-1.3) Estimated GFR (Cockcroft-Gault) 92.1 BUN/Creatinine Ratio 21 (6-20) Glucose Level 93 mg/dL (70-99) Calcium Level 6.4 mg/dL (8.5-10.1) Total Bilirubin 15.5 mg/dL (0.2-1.0) Aspartate Amino Transf (AST/SGOT) 113 U/L (15-37) Alanine Aminotransferase (ALT/SGPT) 34 U/L (16-63) Alkaline Phosphatase 106 U/L (46-116) Total Protein 5.3 g/dL (6.4-8.2) Albumin 1.5 g/dL (3.4-5.0) Albumin/Globulin Ratio 0.4 (1.0-1.7) Comment Review of Relevant I have reviewed the following items roberto (where applicable) has been applied. Medications: Current Medications Medications (Trade) Dose Ordered Sig/Barbara Route PRN Reason Start Time Stop Time Status Last Admin Dose Admin Diphenhydramine HCl (Benadryl) 50 mg PRN Q4HRS PRN PO ITCHING 08/01/21 10:45 08/01/21 13:33 Justifications for Admission Other Justification MARIBETH STRONG MD Aug 01, 2021 17:44
[2021-08-01 19:00] VITALS: BP 132/53
[2021-08-01 23:00] VITALS: BP 135/63
[2021-08-02 03:00] VITALS: BP 141/52
[2021-08-02 07:00] VITALS: BP 129/53
[2021-08-02] MEDS: FOLIC ACID 1 MG TABLET. PO SCH (08:11)
[2021-08-02] MEDS: VITAMIN B12,B9,B6 COMPLEX 1 TABLET. PO SCH (08:11)
[2021-08-02] MEDS: diphenhydrAMINE HCL 25 MG CAPSULE PO PRN ×3 (08:11→17:33)
[2021-08-02] MEDS: PANTOPRAZOLE 40 MG TABLET.DR. PO SCH (08:11)
[2021-08-02] MEDS: MULTIVITAMIN with MINERAL TABLET. PO SCH (08:11)
[2021-08-02] MEDS: SENNOSIDES/DOCUSATE 8.6/50MG TABLET. PO SCH ×2 (08:11→20:27)
[2021-08-02] MEDS: oxyCODONE IR 5 MG TABLET PO PRN ×3 (08:12→17:33)
[2021-08-02] MEDS: THIAMINE 100 MG TABLET. PO SCH (08:12)
[2021-08-02] MEDS: SPIRONOLACTONE 25 MG TABLET PO SCH (08:12)
[2021-08-02 08:46] LABS: PROTHROMBIN TIME PATIENT 31.4 SEC (11.7-14.0)
[2021-08-02 09:12] LABS: ALBUMIN 1.5 g/dL (3.4-5.0); ALBUMIN/GLOBULIN RATIO 0.4 (1.0-1.7); CALCIUM 6.6 mg/dL (8.5-10.1); CREATININE 1.1 mg/dL (0.7-1.3); GFR 73.1; POTASSIUM 3.5 mmol/L (3.5-5.1); TOTAL BILIRUBIN 14.6 mg/dL (0.2-1.0); TOTAL PROTEIN 5.7 g/dL (6.4-8.2)
[2021-08-02 11:00] VITALS: BP 127/50
[2021-08-02 15:00] VITALS: BP 121/70
--- NOTE | 2021-08-02 15:40 | PDOC ---
[employer] PROGRESS NOTE Date of Service DOS: DATE: 08/02/21 TIME: 15:40 Chief Complaint Chief Complaint Liver cirrhosis suspect alcoholic. Work-up for hemochromatosis. Anemia history of alcohol use. Small volume ascites. Hx Factor 5 Leiden on home Warfarin -Patient transferred from outside emergency room yesterday for further evaluation of liver failure -Notably low hemoglobin. Transfuse and recheck. Basic anemia work-up -LFTs elevated throughout. Consult to GI. -Mild ascites and lower extremity edema. Will start patient on low-dose Aldactone and increase as needed -Should ascites worsening happy to perform bedside paracentesis if needed -Low hemoglobin and INR 2.4 we will hold off warfarin for the moment. Daily INR checks. No apparent bleeding -Check abdominal ultrasound -Home meds resumed as indicated -We will at least start DVT prophylaxis -Salt restricted fluid restricted diet History of Present Illness History of Present Illness 08/02 Patient eval and examined at bedside. Waiting on further workup. Gi following. Plan discussed wt bedside rn. 08/01 Patient evaluated at bedside. Complaining of bandlike abdominal pain try GI cocktail please. Benadryl for rash. Okay with warfarin back on. Still will hemochromatosis work-up pending. Sodium a bit lower today today we will just keep a close eye on this for the moment. Recheck labs in the morning. 07/31 Patient evaluated examined at bedside. He was resting in bed reporting some abdominal pain. The pain interestingly not much associated with food as it is movement. Will resume warfarin today with improved hemoglobin. Hemochromatosis work-up pending. Closely monitor for withdrawal. Plan of care discussed with bedside RN. Vitals/I&O Vitals/I&O: Vital Signs Date Time Temp Pulse Resp B/P (MAP) Pulse Ox O2 Delivery O2 Flow Rate FiO2 08/02/21 15:36 94 Room Air 08/02/21 11:00 98.2 105 20 127/50 (75) 98.2 I & O 08/01/21 08/01/21 08/02/21 15:00 23:00 07:00 Intake Total 946 ml 100 ml Output Total 200 ml Balance 946 ml -200 ml 100 ml Physical Exam General: Alert, Oriented X3, Cooperative Heart: Regular rate, Normal S1, Normal S2 Lungs: Clear Abdomen: Other (Bandlike pain and upper abdomen exacerbated by movement) Extremities: Other (Bilateral lower extremity edema) Skin: No significant lesion Labs Labs: Laboratory Tests Test 08/02/21 08:00 Prothrombin Time 31.4 SEC (11.7-14.0) Prothromb Time International Ratio 3.1 (0.8-1.1) Sodium Level 125 mmol/L (136-145) Potassium Level 3.5 mmol/L (3.5-5.1) Chloride Level 95 mmol/L (98-107) Carbon Dioxide Level 22 mmol/L (21-32) Anion Gap 8 (6-14) Blood Urea Nitrogen 22 mg/dL (8-26) Creatinine 1.1 mg/dL (0.7-1.3) Estimated GFR (Cockcroft-Gault) 73.1 BUN/Creatinine Ratio 20 (6-20) Glucose Level 94 mg/dL (70-99) Calcium Level 6.6 mg/dL (8.5-10.1) Total Bilirubin 14.6 mg/dL (0.2-1.0) Aspartate Amino Transf (AST/SGOT) 129 U/L (15-37) Alanine Aminotransferase (ALT/SGPT) 42 U/L (16-63) Alkaline Phosphatase 141 U/L (46-116) Total Protein 5.7 g/dL (6.4-8.2) Albumin 1.5 g/dL (3.4-5.0) Albumin/Globulin Ratio 0.4 (1.0-1.7) Comment Review of Relevant I have reviewed the following items roberto (where applicable) has been applied. Justifications for Admission Other Justification MARIBETH STRONG MD Aug 02, 2021 15:40
[2021-08-02] MEDS: WARFARIN 4 MG TABLET. PO SCH (15:52)
[2021-08-02] MEDS ORDERED: SURGICEL HEMOSTAT 4X8 EACH. TP ONE (18:30)
[2021-08-02 19:00] VITALS: BP 113/47
[2021-08-02 21:08] LABS: SODIUM, URINE <20 mmol/L (Not Estab.); UR POTASSIUM 32.3 mmol/L (Not Estab.)
[2021-08-02 23:00] VITALS: BP 122/57
[2021-08-03] VITALS (17 sets, daily range): BP systolic 117–137; BP diastolic 45–84
[2021-08-03] MEDS ORDERED: PHYTONADIONE 10 MG/ML AMPUL. SQ ONE (07:30)
[2021-08-03] MEDS: oxyCODONE IR 5 MG TABLET PO PRN ×3 (08:03→17:33)
[2021-08-03] MEDS: diphenhydrAMINE HCL 25 MG CAPSULE PO PRN ×3 (08:04→17:33)
[2021-08-03 09:00] LABS: RED BLOOD COUNT 1.93 x10^6/uL (4.30-5.70); RED CELL DISTRIBUTION WIDTH 22.5 % (11.5-14.5); WHITE BLOOD COUNT 12.8 x10^3/uL (4.0-11.0)
[2021-08-03] MEDS: SENNOSIDES/DOCUSATE 8.6/50MG TABLET. PO SCH ×2 (09:00→19:30)
[2021-08-03] MEDS ORDERED: FOLIC ACID 1 MG TABLET. PO SCH (09:00)
[2021-08-03 09:27] LABS: HEMATOCRIT 19.8 % (39.0-53.0); HEMOGLOBIN 6.9 g/dL (13.0-17.5)
--- NOTE | 2021-08-03 09:35 | PDOC ---
SURGICAL PROGRESS NOTE DATE: 08/03/21 TIME: 09:34 Subjective 2 attempts to see the patient who is in the shower unavailable Vital Signs Vital Signs Date Time Temp Pulse Resp B/P (MAP) Pulse Ox O2 Delivery O2 Flow Rate FiO2 08/03/21 08:03 97 Room Air 08/03/21 07:00 98.0 106 20 125/50 (75) 98.0 I&O Intake and Output 08/03/21 07:00 Intake Total 840 ml Balance 840 ml Intake Oral 840 ml # Voids 1 PATIENT HAS A PEREIRA: No Labs Laboratory Tests Test 08/01/21 20:20 08/02/21 08:00 08/03/21 08:30 Urine Sodium <20 mmol/L (Not Estab.) Urine Potassium 32.3 mmol/L (Not Estab.) Urine Chloride <20 mmol/L (Not Estab.) Prothrombin Time 31.4 SEC (11.7-14.0) Prothromb Time International Ratio 3.1 (0.8-1.1) Sodium Level 125 mmol/L (136-145) Potassium Level 3.5 mmol/L (3.5-5.1) Chloride Level 95 mmol/L (98-107) Carbon Dioxide Level 22 mmol/L (21-32) Anion Gap 8 (6-14) Blood Urea Nitrogen 22 mg/dL (8-26) Creatinine 1.1 mg/dL (0.7-1.3) Estimated GFR (Cockcroft-Gault) 73.1 BUN/Creatinine Ratio 20 (6-20) Glucose Level 94 mg/dL (70-99) Calcium Level 6.6 mg/dL (8.5-10.1) Total Bilirubin 14.6 mg/dL (0.2-1.0) Aspartate Amino Transf (AST/SGOT) 129 U/L (15-37) Alanine Aminotransferase (ALT/SGPT) 42 U/L (16-63) Alkaline Phosphatase 141 U/L (46-116) Total Protein 5.7 g/dL (6.4-8.2) Albumin 1.5 g/dL (3.4-5.0) Albumin/Globulin Ratio 0.4 (1.0-1.7) White Blood Count 12.8 x10^3/uL (4.0-11.0) Red Blood Count 1.93 x10^6/uL (4.30-5.70) Hemoglobin 6.9 g/dL (13.0-17.5) Hematocrit 19.8 % (39.0-53.0) Mean Corpuscular Volume 102 fL (79-100) Mean Corpuscular Hemoglobin 36 pg (25-35) Mean Corpuscular Hemoglobin Concent 35 g/dL (31-37) Red Cell Distribution Width 22.5 % (11.5-14.5) Platelet Count 122 x10^3/uL (140-400) Laboratory Tests Test 08/03/21 08:30 White Blood Count 12.8 x10^3/uL (4.0-11.0) Red Blood Count 1.93 x10^6/uL (4.30-5.70) Hemoglobin 6.9 g/dL (13.0-17.5) Hematocrit 19.8 % (39.0-53.0) Mean Corpuscular Volume 102 fL (79-100) Mean Corpuscular Hemoglobin 36 pg (25-35) Mean Corpuscular Hemoglobin Concent 35 g/dL (31-37) Red Cell Distribution Width 22.5 % (11.5-14.5) Platelet Count 122 x10^3/uL (140-400) Assessment/Plan Anticoagulated on warfarin as well as cirrhosis of the liver recommend co rrecting coags with an INR less than 2. This should create hemostasis for the laceration of his cheek. We will follow-up at a later time Justicifation of Admission Dx: Justifications for Admission: Justification of Admission Dx: Yes ASHLY IZAGUIRRE MD Aug 03, 2021 09:35
[2021-08-03] MEDS ORDERED: ACETAMINOPHEN 325 MG TABLET. PO PRN (10:15)
[2021-08-03 11:28] LABS: PROTHROMBIN TIME PATIENT 40.8 SEC (11.7-14.0)
[2021-08-03] MEDS: MULTIVITAMIN with MINERAL TABLET. PO SCH (12:24)
[2021-08-03] MEDS: THIAMINE 100 MG TABLET. PO SCH (12:25)
[2021-08-03] MEDS: VITAMIN B12,B9,B6 COMPLEX 1 TABLET. PO SCH (12:25)
[2021-08-03] MEDS: SPIRONOLACTONE 25 MG TABLET PO SCH (12:25)
[2021-08-03] MEDS: WARFARIN 4 MG TABLET. PO SCH (12:26)
[2021-08-03] MEDS: PANTOPRAZOLE 40 MG TABLET.DR. PO SCH (12:26)
[2021-08-03] MEDS: FOLIC ACID 1 MG TABLET. PO SCH (12:26)
[2021-08-04] VITALS (10 sets, daily range): BP systolic 113–129; BP diastolic 42–59
[2021-08-04 08:14] LABS: HEMATOCRIT 21.2 % (39.0-53.0); HEMOGLOBIN 7.3 g/dL (13.0-17.5)
[2021-08-04] MEDS: MULTIVITAMIN with MINERAL TABLET. PO SCH (08:36)
[2021-08-04] MEDS: SPIRONOLACTONE 25 MG TABLET PO SCH (08:36)
[2021-08-04] MEDS: THIAMINE 100 MG TABLET. PO SCH (08:36)
[2021-08-04] MEDS: FOLIC ACID 1 MG TABLET. PO SCH (08:36)
[2021-08-04] MEDS: VITAMIN B12,B9,B6 COMPLEX 1 TABLET. PO SCH (08:36)
[2021-08-04] MEDS: PANTOPRAZOLE 40 MG TABLET.DR. PO SCH (08:36)
[2021-08-04] MEDS: SENNOSIDES/DOCUSATE 8.6/50MG TABLET. PO SCH ×2 (08:36→20:11)
--- NOTE | 2021-08-04 10:13 | PDOC ---
Date of Service: DATE: 08/04/21 TIME: 10:03 Subjective: Subjective: Feels fine, asking to leave. Denies abd pain, says he's tolerating diet. Mother present - ex- (pt's father) has h/o alcoholism, pt's sister (her daughter) passed form liver disease. Says he has been hallucinating and is agitated/anxious. She cannot care for him at home. Objective: Objective: D/w nurse - no GI concerns - aware mother concerned with being unable to care for him. S/p FFP and pRBCs yesterday for cheek bleeding - surgery following for this. Vital Signs: Vital Signs Date Time Temp Pulse Resp B/P (MAP) Pulse Ox O2 Delivery O2 Flow Rate FiO2 08/04/21 07:00 99.1 111 20 122/49 (73) 97 Room Air 99.1 Labs: Laboratory Tests Test 08/03/21 10:55 08/04/21 08:00 Prothrombin Time 40.8 SEC Prothromb Time International Ratio 4.4 Hemoglobin 7.3 g/dL Hematocrit 21.2 % Mean Corpuscular Hemoglobin Concent 34 g/dL PE: GEN: appears chronically ill, has bandage wrapping around head over cheek, also a bit tremulous LUNGS: clear anteriorly HEART: tachycardic ABD: soft, non-tender EXTREMITY: chronic LE edema/skin changed SKIN: +jaundice NEURO/PSYCH: maybe a little forgetful - first says the year is 2019, then realized it's 2021 - knows he's at [facility], knows who the president is (though took some time to think) A/P: Suspected alcoholic hepatitis/cirrhosis Anemia, thrombocytopenia, coagulopathy, hyponatremia H/o Factor V Leiden -- Difficult situation, continue support GI-brito, transfuse as needed. Justicifation of Admission Dx: Justifications for Admission: Justification of Admission Dx: Yes ABIGAIL ALVAREZ Aug 04, 2021 10:13
--- NOTE | 2021-08-04 11:24 | NUR ---
SW following. Discussed with RN, pt from home, room air, regular diet, COVID-19 negative. KWAN consult for etoh use/abuse. Pt's mother stating pt can't return home due to pt having agitation and hallucinations - RN not experiencing these things with pt. Surgery and GI following. HAROLDO will continue to follow. Addendum: 08/04/21 at 1301 by MALIK PEÑA SW Brandie MONTALVO) met with pt, and provided resources for [employer], [facility] and [facility]. Pt denies feeling as if he needs any outpatient substance use services as he hasn't had a drink since before . AA information provided also. Pt cleared by [facility] team.
[2021-08-04 13:56] LABS: PROTHROMBIN TIME PATIENT 33.7 SEC (11.7-14.0)
--- NOTE | 2021-08-04 15:41 | NUR ---
Wound Care: Consult by Fredy Crook APRN to eval and treat "wound to cheek, bleeding." Pt had a significant blood stain on the collar of his shirt and a small amount of clotted blood in his brizuela. Pt states the blood stain is from last night and that he has Factor 5 clotting disorder. Family at bedside states that the same area has opened up multiple times and has been glued and sutured in the past with limited success. Brizuela cleansed of dry blood and trimmed, no true wound is observed, only a small pinpoint opening with some peripheral redness, like a n open pimple. Applied a small piece of epiona collagen and covered with hydrocolloid for protection. Explained to family that wound care will not be able to offer any long-term solutions due to the etiology of the acute bleeding, and it would be up to the patient to follow up with a acidizer water well for further management. Wound care to sign off at this time.
--- NOTE | 2021-08-04 16:53 | NUR ---
Pharmacy Warfarin Dosing Note S:Pharmacy consulted to assist with anticoagulation therapy started with target INR: 2 -3 O:ELIEZER MAHAN is a 41 year old M with factor V leiden LABS: Last INR: 3.4 Last HGB: 7.3 Last HCT: 21.2 Last PLT: 122 Last dose of Hold given on 08/02/21 at 1552 Previous Regimen: Vitamin K given: N Drug Interaction Changes: None Ongoing Drug Interactions: A:INR of 3.4 is above desired range. Target range for this patient is: 2 -3 P: Warfarin dose: 1 mg Today at 1700. Bridge Therapy: None Next INR due tomorrow. Pharmacy anticoagulation service will continue to follow. Johnathon Gagnon [facility], 08/04/21 [id number]
[2021-08-04] MEDS ORDERED: WARFARIN 1 MG TABLET. PO ONE (17:00)
[2021-08-04] MEDS: diphenhydrAMINE HCL 25 MG CAPSULE PO PRN (17:34)
[2021-08-04] MEDS: oxyCODONE IR 5 MG TABLET PO PRN (17:39)
--- NOTE | 2021-08-05 00:31 | PDOC ---
[employer] PROGRESS NOTE Date of Service DOS: 08/03 late entry Chief Complaint Chief Complaint Liver cirrhosis suspect alcoholic. Work-up for hemochromatosis. Anemia history of alcohol use. Small volume ascites. Hx Factor 5 Leiden on home Warfarin -Patient transferred from outside emergency room yesterday for further evaluation of liver failure -Notably low hemoglobin. Transfuse and recheck. Basic anemia work-up -LFTs elevated throughout. Consult to GI. -Mild ascites and lower extremity edema. Will start patient on low-dose Aldactone and increase as needed -Should ascites worsening happy to perform bedside paracentesis if needed -Low hemoglobin and INR 2.4 we will hold off warfarin for the moment. Daily INR checks. No apparent bleeding -Check abdominal ultrasound -Home meds resumed as indicated -We will at least start DVT prophylaxis -Salt restricted fluid restricted diet History of Present Illness History of Present Illness 08/03 eval and examined at bedside. somehow ripped stitches out on face. profusely bleeding. FFP and vitamin K. transfuse as needed. 08/02 Patient eval and examined at bedside. Waiting on further workup. Gi following. Plan discussed [facility] bedside rn. 08/01 Patient evaluated at bedside. Complaining of bandlike abdominal pain try GI cocktail please. Benadryl for rash. Okay with warfarin back on. Still will hemochromatosis work-up pending. Sodium a bit lower today today we will just keep a close eye on this for the moment. Recheck labs in the morning. 07/31 Patient evaluated examined at bedside. He was resting in bed reporting some abdominal pain. The pain interestingly not much associated with food as it is movement. Will resume warfarin today with improved hemoglobin. Hemochromatosis work-up pending. Closely monitor for withdrawal. Plan of care discussed with bedside RN. Vitals/I&O Vitals/I&O: Vital Signs Date Time Temp Pulse Resp B/P (MAP) Pulse Ox O2 Delivery O2 Flow Rate FiO2 08/04/21 19:57 Room Air 08/04/21 15:00 99.3 107 20 129/49 (75) 96 99.3 I & O 08/04/21 08/04/21 08/05/21 15:00 23:00 07:00 Intake Total 480 ml 240 ml Output Total 100 ml 100 ml Balance 380 ml 140 ml Physical Exam General: Cooperative, No acute distress, Other (jaundiced) Heart: Regular rate, Normal S1, Normal S2 Lungs: Clear Abdomen: Soft Extremities: No clubbing, No cyanosis Skin: No significant lesion Labs Labs: Laboratory Tests Test 08/04/21 08:00 08/04/21 11:25 08/04/21 13:30 Hemoglobin 7.3 g/dL (13.0-17.5) Hematocrit 21.2 % (39.0-53.0) Mean Corpuscular Hemoglobin Concent 34 g/dL (31-37) Ammonia 43 mcmol/L (11-34) Prothrombin Time 33.7 SEC (11.7-14.0) Prothromb Time International Ratio 3.4 (0.8-1.1) Comment Review of Relevant I have reviewed the following items roberto (where applicable) has been applied. Medications: Current Medications Medications (Trade) Dose Ordered Sig/Barbara Route PRN Reason Start Time Stop Time Status Last Admin Dose Admin Warfarin Sodium (Coumadin Per Pharmacy) 1 each PRN DAILY PRN MC SEE COMMENTS 08/04/21 11:15 08/04/21 16:51 Warfarin Sodium (Coumadin) 1 mg 1X WARF ONCE PO 08/04/21 17:00 08/04/21 17:01 DC 08/04/21 17:22 Justifications for Admission Other Justification MARIBETH STRONG MD Aug 05, 2021 00:31
--- NOTE | 2021-08-05 00:32 | PDOC ---
[employer] PROGRESS NOTE Date of Service DOS: 08/04 late entry Chief Complaint Chief Complaint Liver cirrhosis suspect alcoholic. Work-up for hemochromatosis. Anemia history of alcohol use. Small volume ascites. Hx Factor 5 Leiden on home Warfarin -Patient transferred from outside emergency room yesterday for further evaluation of liver failure -Notably low hemoglobin. Transfuse and recheck. Basic anemia work-up -LFTs elevated throughout. Consult to GI. -Mild ascites and lower extremity edema. Will start patient on low-dose Aldactone and increase as needed -Should ascites worsening happy to perform bedside paracentesis if needed -Low hemoglobin and INR 2.4 we will hold off warfarin for the moment. Daily INR checks. No apparent bleeding -Check abdominal ultrasound -Home meds resumed as indicated -We will at least start DVT prophylaxis -Salt restricted fluid restricted diet History of Present Illness History of Present Illness 08/04 patient evaluated and examined at bedside. Resting in bed. bleeding much improved. still closely monitor. family at bedside do not feel comfortable with patient at home. try pt ot but suspect patient will need to return home. 08/03 eval and examined at bedside. somehow ripped stitches out on face. profusely bleeding. FFP and vitamin K. transfuse as needed. 08/02 Patient eval and examined at bedside. Waiting on further workup. Gi following. Plan discussed wt bedside rn. 08/01 Patient evaluated at bedside. Complaining of bandlike abdominal pain try GI cocktail please. Benadryl for rash. Okay with warfarin back on. Still will hemochromatosis work-up pending. Sodium a bit lower today today we will just keep a close eye on this for the moment. Recheck labs in the morning. 07/31 Patient evaluated examined at bedside. He was resting in bed reporting some abdominal pain. The pain interestingly not much associated with food as it is movement. Will resume warfarin today with improved hemoglobin. Hemochromatosis work-up pending. Closely monitor for withdrawal. Plan of care discussed with bedside RN. Vitals/I&O Vitals/I&O: Vital Signs Date Time Temp Pulse Resp B/P (MAP) Pulse Ox O2 Delivery O2 Flow Rate FiO2 08/04/21 19:57 Room Air 08/04/21 15:00 99.3 107 20 129/49 (75) 96 99.3 I & O 08/04/21 08/04/2122 15:00 23:00 07:00 Intake Total 480 ml 240 ml Output Total 100 ml 100 ml Balance 380 ml 140 ml Physical Exam General: Cooperative, No acute distress, Other (jaundiced) Heart: Regular rate, Normal S1, Normal S2 Lungs: Clear Abdomen: Soft Extremities: No clubbing, No cyanosis Skin: No significant lesion Labs Labs: Laboratory Tests Test 08/04/21 08:00 08/04/21 11:25 08/04/21 13:30 Hemoglobin 7.3 g/dL (13.0-17.5) Hematocrit 21.2 % (39.0-53.0) Mean Corpuscular Hemoglobin Concent 34 g/dL (31-37) Ammonia 43 mcmol/L (11-34) Prothrombin Time 33.7 SEC (11.7-14.0) Prothromb Time International Ratio 3.4 (0.8-1.1) Comment Review of Relevant I have reviewed the following items roberto (where applicable) has been applied. Medications: Current Medications Medications (Trade) Dose Ordered Sig/Barbara Route PRN Reason Start Time Stop Time Status Last Admin Dose Admin Warfarin Sodium (Coumadin Per Pharmacy) 1 each PRN DAILY PRN MC SEE COMMENTS 08/04/21 11:15 08/04/21 16:51 Warfarin Sodium (Coumadin) 1 mg 1X WARF ONCE PO 08/04/21 17:00 08/04/21 17:01 DC 08/04/21 17:22 Justifications for Admission Other Justification MARIBETH STRONG MD Aug 05, 2021 00:32
[2021-08-05 03:46] LABS: BASO % 0 % (0-3); EOS # 0.2 x10^3/uL (0.0-0.7); EOS % 1 % (0-3); HEMATOCRIT 22.2 % (39.0-53.0); HEMOGLOBIN 7.5 g/dL (13.0-17.5); LYMPH # 1.7 x10^3/uL (1.0-4.8); LYMPH % 13 % (24-48); MEAN CORPUSCULAR HEMOGLOBIN 34 pg (25-35); MEAN CORPUSCULAR HGB CONC 34 g/dL (31-37); MEAN CORPUSCULAR VOLUME 100 fL (79-100); MONO # 0.3 x10^3/uL (0.0-1.1); MONO % 3 % (0-9); NEUT % 83 % (31-73); PLATELET COUNT 153 x10^3/uL (140-400); RED BLOOD COUNT 2.23 x10^6/uL (4.30-5.70); RED CELL DISTRIBUTION WIDTH 24.3 % (11.5-14.5); WHITE BLOOD COUNT 13.3 x10^3/uL (4.0-11.0)
[2021-08-05 07:00] VITALS: BP 133/55
--- NOTE | 2021-08-05 08:56 | PDOC ---
SURGICAL PROGRESS NOTE DATE: 08/05/21 TIME: 08:53 Subjective bleeding had stopped yesterday, picked off his dressing now bleeding again Vital Signs Vital Signs Date Time Temp Pulse Resp B/P (MAP) Pulse Ox O2 Delivery O2 Flow Rate FiO2 08/04/21 23:00 99.0 112 20 124/58 (80) 96 Room Air 99.0 I&O Intake and Output 08/05/21 07:00 Intake Total 720 ml Output Total 700 ml Balance 20 ml Intake Oral 720 ml Output Urine Total 700 ml General: Other (jaundice) HEENT: Other (cheek with pinpoint area of bleeding ) Labs Laboratory Tests Test 08/03/21 10:55 08/04/21 08:00 08/04/21 11:25 08/04/21 13:30 Prothrombin Time 40.8 SEC (11.7-14.0) 33.7 SEC (11.7-14.0) Prothromb Time International Ratio 4.4 (0.8-1.1) 3.4 (0.8-1.1) Hemoglobin 7.3 g/dL (13.0-17.5) Hematocrit 21.2 % (39.0-53.0) Mean Corpuscular Hemoglobin Concent 34 g/dL (31-37) Ammonia 43 mcmol/L (11-34) Test 08/05/21 03:20 White Blood Count 13.3 x10^3/uL (4.0-11.0) Red Blood Count 2.23 x10^6/uL (4.30-5.70) Hemoglobin 7.5 g/dL (13.0-17.5) Hematocrit 22.2 % (39.0-53.0) Mean Corpuscular Volume 100 fL (79-100) Mean Corpuscular Hemoglobin 34 pg (25-35) Mean Corpuscular Hemoglobin Concent 34 g/dL (31-37) Red Cell Distribution Width 24.3 % (11.5-14.5) Platelet Count 153 x10^3/uL (140-400) Neutrophils (%) (Auto) 83 % (31-73) Lymphocytes (%) (Auto) 13 % (24-48) Monocytes (%) (Auto) 3 % (0-9) Eosinophils (%) (Auto) 1 % (0-3) Basophils (%) (Auto) 0 % (0-3) Neutrophils # (Auto) 11.0 x10^3/uL (1.8-7.7) Lymphocytes # (Auto) 1.7 x10^3/uL (1.0-4.8) Monocytes # (Auto) 0.3 x10^3/uL (0.0-1.1) Eosinophils # (Auto) 0.2 x10^3/uL (0.0-0.7) Basophils # (Auto) 0.0 x10^3/uL (0.0-0.2) Prothrombin Time 29.0 SEC (11.7-14.0) Prothromb Time International Ratio 2.8 (0.8-1.1) Laboratory Tests Test 08/04/21 11:25 08/04/21 13:30 08/05/21 03:20 Ammonia 43 mcmol/L (11-34) Prothrombin Time 33.7 SEC (11.7-14.0) 29.0 SEC (11.7-14.0) Prothromb Time International Ratio 3.4 (0.8-1.1) 2.8 (0.8-1.1) White Blood Count 13.3 x10^3/uL (4.0-11.0) Red Blood Count 2.23 x10^6/uL (4.30-5.70) Hemoglobin 7.5 g/dL (13.0-17.5) Hematocrit 22.2 % (39.0-53.0) Mean Corpuscular Volume 100 fL (79-100) Mean Corpuscular Hemoglobin 34 pg (25-35) Mean Corpuscular Hemoglobin Concent 34 g/dL (31-37) Red Cell Distribution Width 24.3 % (11.5-14.5) Platelet Count 153 x10^3/uL (140-400) Neutrophils (%) (Auto) 83 % (31-73) Lymphocytes (%) (Auto) 13 % (24-48) Monocytes (%) (Auto) 3 % (0-9) Eosinophils (%) (Auto) 1 % (0-3) Basophils (%) (Auto) 0 % (0-3) Neutrophils # (Auto) 11.0 x10^3/uL (1.8-7.7) Lymphocytes # (Auto) 1.7 x10^3/uL (1.0-4.8) Monocytes # (Auto) 0.3 x10^3/uL (0.0-1.1) Eosinophils # (Auto) 0.2 x10^3/uL (0.0-0.7) Basophils # (Auto) 0.0 x10^3/uL (0.0-0.2) Problem List no surgical plans, pressure dressing, would rec heme consult--? need for coumadin with liver disease will be available as needed Justicifation of Admission Dx: Justifications for Admission: Justification of Admission Dx: Yes EVAN VIGIL CAPONIZER Aug 05, 2021 08:55
[2021-08-05] MEDS: VITAMIN B12,B9,B6 COMPLEX 1 TABLET. PO SCH (09:05)
[2021-08-05] MEDS: SENNOSIDES/DOCUSATE 8.6/50MG TABLET. PO SCH ×2 (09:05→19:56)
[2021-08-05] MEDS: MULTIVITAMIN with MINERAL TABLET. PO SCH (09:05)
[2021-08-05] MEDS: THIAMINE 100 MG TABLET. PO SCH (09:05)
[2021-08-05] MEDS: FOLIC ACID 1 MG TABLET. PO SCH (09:05)
[2021-08-05] MEDS: PANTOPRAZOLE 40 MG TABLET.DR. PO SCH (09:05)
[2021-08-05] MEDS: SPIRONOLACTONE 25 MG TABLET PO SCH (09:06)
--- NOTE | 2021-08-05 09:53 | PDOC ---
Date of Service: DATE: 08/05/21 TIME: 09:48 Subjective: Subjective: Feels worse. Short of breath, weak. Abdomen might be more distended. Objective: Objective: Nurse present - has noted weeping from right flank, also had some bleeding from cheek overnight. Vital Signs: Vital Signs Date Time Temp Pulse Resp B/P (MAP) Pulse Ox O2 Delivery O2 Flow Rate FiO2 08/05/21 07:00 99.6 127 20 133/55 (81) 94 Room Air 99.6 Labs: Laboratory Tests Test 08/04/21 11:25 08/04/21 13:30 08/05/21 03:20 Ammonia 43 mcmol/L Prothrombin Time 33.7 SEC 29.0 SEC Prothromb Time International Ratio 3.4 2.8 White Blood Count 13.3 x10^3/uL Red Blood Count 2.23 x10^6/uL Hemoglobin 7.5 g/dL Hematocrit 22.2 % Mean Corpuscular Volume 100 fL Mean Corpuscular Hemoglobin 34 pg Mean Corpuscular Hemoglobin Concent 34 g/dL Red Cell Distribution Width 24.3 % Platelet Count 153 x10^3/uL Neutrophils (%) (Auto) 83 % Lymphocytes (%) (Auto) 13 % Monocytes (%) (Auto) 3 % Eosinophils (%) (Auto) 1 % Basophils (%) (Auto) 0 % Neutrophils # (Auto) 11.0 x10^3/uL Lymphocytes # (Auto) 1.7 x10^3/uL Monocytes # (Auto) 0.3 x10^3/uL Eosinophils # (Auto) 0.2 x10^3/uL Basophils # (Auto) 0.0 x10^3/uL PE: GEN: appears chronically ill HEENT: dried blood in nares LUNGS: bit tachypneic HEART: tachycardic ABD: more distended, weeping (yellow-clear) from right flank region, edema/anasarca EXTREMITY: chronic LE edema SKIN: +jaundice +telangiectasias NEURO/PSYCH: A & O 3, bit fuzzy on details (stable) A/P: Alcoholic hepatitis/cirrhosis - small ascites on US @ [facility] Anemia, thrombocytopenia, coagulopathy, hyponatremia, mildly elevated ammonia H/o Factor V Leiden on Warfarin w/ cheek wound -- Worse today. Check interval CMP and CT. Justicifation of Admission Dx: Justifications for Admission: Justification of Admission Dx: Yes ABIGAIL ALVAREZ Aug 05, 2021 09:53
[2021-08-05 09:56] LABS: ALBUMIN 1.5 g/dL (3.4-5.0); ALBUMIN/GLOBULIN RATIO 0.4 (1.0-1.7); CREATININE 1.3 mg/dL (0.7-1.3); GFR 60.2; POTASSIUM 4.4 mmol/L (3.5-5.1); TOTAL BILIRUBIN 14.5 mg/dL (0.2-1.0); TOTAL PROTEIN 5.5 g/dL (6.4-8.2)
[2021-08-05] MEDS ORDERED: IOHEXOL 300 MG/ML 100ML VIAL. IV ONE (10:00)
[2021-08-05] MEDS ORDERED: IOHEXOL 240 MG/ML 50ML VIAL. PO ONE (10:00)
[2021-08-05] MEDS ORDERED: CONTRAST GIVEN. MC PRN (10:15)
[2021-08-05 11:00] VITALS: BP 140/62
--- NOTE | 2021-08-05 12:03 | RAD ---
CT of the chest, abdomen, and pelvis 08/05/2021 INDICATION: Liver disease. Anasarca. Ascites. Shortness of breath. COMPARISON STUDY: Ultrasound of the abdomen, July 29, 2021. TECHNIQUE: Multidetector CT imaging of the chest, abdomen, and pelvis was performed following the adm inistration of contrast. FINDINGS: Heart size is normal. No pericardial effusion is identified. No pathologically enlarged med iastinal seen. Patchy groundglass infiltrates are seen in the upper lobes. Mild intralobular septal t hickening is seen bilaterally. No significant pleural effusion is identified. There is mild right low er lobe volume loss is minimal bronchograms. Findings most likely represent atelectasis. A mild or ea rly pneumonia is difficult to completely exclude. Mild perihepatic ascites is seen in the right upper quadrant surrounding the liver. Trace free fluid is seen in the pelvis. Diffuse body wall edema/anasarca particularly involving the abdomen pelvis not ed. The timing of contrast bolus makes evaluation of the hepatic parenchyma somewhat suboptimal. Evaluati on of the intrahepatic portal veins is not possible. The liver has somewhat nodular contour. There is recanalization of the umbilical vein. Main portal vein appears to be somewhat small. The splenic vei n appears be patent. 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 The spleen is enlarged. Oral contra st is seen predominantly within the stomach and proximal duodenum. There is thickening of the distal duodenum and proximal jejunum. No other bowel obstruction is seen. Kidneys are grossly unremarkable i n appearance. Adrenal glands are unremarkable. Evaluation of the pancreas is somewhat limited given d iffuse edema. The pancreas appears grossly unremarkable. Cholelithiasis noted. There is likely a sple norenal shunt. There is a small umbilical hernia containing fat mesenteric fat and vessels, without b owel. No acute osseous changes are identified. IMPRESSION: 1. Anasarca 2. Probable cirrhosis and portal hypertension with mild perihepatic ascites, gastroesophageal varices , recanalized umbilical vein, and splenomegaly. Gastroenterology consultation recommended. 3. Groundglass opacities and interlobular septal thickening in the bilateral upper lobes suggestive m ild pulmonary edema. An atypical infectious processes less likely but not excluded. Milder right lowe r lobe atelectasis versus less likely early pneumonia. 4. Thickening of the distal duodenum and proximal jejunum possibly representing focal inflammation/en teritis of uncertain etiology. 5. Cholelithiasis CT DOSING PQRS STATEMENT: One or more of the following individualized dose reduction techniques were utilized for this examinat ion: 1. Automated exposure control 2. Adjustment of the mA and/or kV according to patient size 3. Use of iterative reconstruction technique Electronically signed by: Manuel Tuttle MD (08/05/2021 12:00 PM) [id number]
--- NOTE | 2021-08-05 12:18 | NUR ---
SS following up with discharge planning. SS reviewed pt chart and discussed with pt RN. Pt is currently on room air. COVID19 negative. Surgery, Wound care, and GI following. No surgical plans. GI ordering images. PT/OT ordered. Self pay. Med Assist following. SS will continue to follow for discharge planning.
--- NOTE | 2021-08-05 14:39 | PDOC ---
[employer] PROGRESS NOTE Date of Service DOS: DATE: 08/05/21 TIME: 14:17 Chief Complaint Chief Complaint Liver cirrhosis suspect alcoholic. Work-up for hemochromatosis. Anemia history of alcohol use. Small volume ascites. Hx Factor 5 Leiden on home Warfarin Alcoholic hepatitis/cirrhosis - small ascites on US @ [facility] Anemia, thrombocytopenia, coagulopathy, hyponatremia, mildly elevated ammonia H/o Factor V Leiden on Warfarin w/ cheek wound -Patient transferred from outside emergency room yesterday for further evaluation of liver failure -Notably low hemoglobin. Transfuse and recheck. Basic anemia work-up -LFTs elevated throughout. Consult to GI. -Mild ascites and lower extremity edema. Will start patient on low-dose Aldactone and increase as needed -Should ascites worsening happy to perform bedside paracentesis if needed -Low hemoglobin and INR 2.4 we will hold off warfarin for the moment. Daily INR checks. No apparent bleeding -Check abdominal ultrasound -Home meds resumed as indicated -We will at least start DVT prophylaxis -Salt restricted fluid restricted diet History of Present Illness History of Present Illness Mr Holm is a 41 y/o male w/ PMHx FV leiden on warfarin, heavy ETOH abuse was evaluated at [facility] for bleeding from cheek laceration. He was transferred to [facility] for further care. Initial labs: WBC 12.6, Hgb 5.3, MCV 115, plt 175, Na 133, K 3, BUN 11, Cr 0.9, bili 15.2, direct 10.2, AST 133, ALT 32, Alk Phos 105, ammonia 25, lipase 232, COVID negative. CT w/ cholelithiasis w/ superimposed GB distention and wall thickening and surrounding stranding, suspected hepatic cirrhosis and changes related to portal hypertension, mildd diffuse bowel wall thickening due to presence os small ascites and mesenteric stranding, diverticulosis, splenomegaly and splenorenal shunt and prominent collateral vessels within mesentery and retroperitoneum. US shows cirrhosis, small ascites, moderate splenomegaly, cholelithiasis and biliary sludge, and CBD 4mm. 08/05: Notes his abdomen has swollen further, feels worse. a little more trouble breathing today. Thinks it is August. Hb 7.5, NA 127, CR 1.3, bilirubin 14.5, albumin 1.5, INR2.8. He and his mother tearful today noting his sister of liver disease at a young age. CT abdomen pelvis reviewed bilateral basilar opacities cholelithiasis significant anasarca 08/04: patient evaluated and examined at bedside. Resting in bed. bleeding much improved. still closely monitor. family at bedside do not feel comfortable with patient at home. try pt ot but suspect patient will need to return home. 08/03: eval and examined at bedside. somehow ripped stitches out on face. profusely bleeding. FFP and vitamin K. transfuse as needed. 08/02: Patient eval and examined at bedside. Waiting on further workup. Gi following. Plan discussed wt bedside rn. 08/01: Patient evaluated at bedside. Complaining of bandlike abdominal pain try GI cocktail please. Benadryl for rash. Okay with warfarin back on. Still will hemochromatosis work-up pending. Sodium a bit lower today today we will just keep a close eye on this for the moment. 07/31: Patient evaluated examined at bedside. He was resting in bed reporting some abdominal pain. The pain interestingly not much associated with food as it is movement. Will resume warfarin today with improved hemoglobin. Hemochromatosis work-up pending. Vitals/I&O Vitals/I&O: Vital Signs Date Time Temp Pulse Resp B/P (MAP) Pulse Ox O2 Delivery O2 Flow Rate FiO2 08/05/21 11:00 99.0 122 18 140/62 (88) 93 Room Air 99.0 I & O 08/04/21 08/04/21 08/05/21 15:00 23:00 07:00 Intake Total 480 ml 240 ml Output Total 100 ml 100 ml 500 ml Balance 380 ml 140 ml -500 ml Physical Exam General: Other (jaundice) Heart: Regular rate, Normal S1, Normal S2 Lungs: Clear Abdomen: Soft Extremities: No clubbing, No cyanosis Skin: No significant lesion Labs Labs: Laboratory Tests Test 08/05/21 03:20 White Blood Count 13.3 x10^3/uL (4.0-11.0) Red Blood Count 2.23 x10^6/uL (4.30-5.70) Hemoglobin 7.5 g/dL (13.0-17.5) Hematocrit 22.2 % (39.0-53.0) Mean Corpuscular Volume 100 fL (79-100) Mean Corpuscular Hemoglobin 34 pg (25-35) Mean Corpuscular Hemoglobin Concent 34 g/dL (31-37) Red Cell Distribution Width 24.3 % (11.5-14.5) Platelet Count 153 x10^3/uL (140-400) Neutrophils (%) (Auto) 83 % (31-73) Lymphocytes (%) (Auto) 13 % (24-48) Monocytes (%) (Auto) 3 % (0-9) Eosinophils (%) (Auto) 1 % (0-3) Basophils (%) (Auto) 0 % (0-3) Neutrophils # (Auto) 11.0 x10^3/uL (1.8-7.7) Lymphocytes # (Auto) 1.7 x10^3/uL (1.0-4.8) Monocytes # (Auto) 0.3 x10^3/uL (0.0-1.1) Eosinophils # (Auto) 0.2 x10^3/uL (0.0-0.7) Basophils # (Auto) 0.0 x10^3/uL (0.0-0.2) Prothrombin Time 29.0 SEC (11.7-14.0) Prothromb Time International Ratio 2.8 (0.8-1.1) Sodium Level 127 mmol/L (136-145) Potassium Level 4.4 mmol/L (3.5-5.1) Chloride Level 95 mmol/L (98-107) Carbon Dioxide Level 18 mmol/L (21-32) Anion Gap 14 (6-14) Blood Urea Nitrogen 27 mg/dL (8-26) Creatinine 1.3 mg/dL (0.7-1.3) Estimated GFR (Cockcroft-Gault) 60.2 BUN/Creatinine Ratio 21 (6-20) Glucose Level 72 mg/dL (70-99) Calcium Level 7.0 mg/dL (8.5-10.1) Total Bilirubin 14.5 mg/dL (0.2-1.0) Aspartate Amino Transf (AST/SGOT) 117 U/L (15-37) Alanine Aminotransferase (ALT/SGPT) 43 U/L (16-63) Alkaline Phosphatase 134 U/L (46-116) Total Protein 5.5 g/dL (6.4-8.2) Albumin 1.5 g/dL (3.4-5.0) Albumin/Globulin Ratio 0.4 (1.0-1.7) Comment Review of Relevant I have reviewed the following items roberto (where applicable) has been applied. Medications: Current Medications Medications (Trade) Dose Ordered Sig/Barbara Route PRN Reason Start Time Stop Time Status Last Admin Dose Admin Warfarin Sodium (Coumadin) 1 mg 1X WARF ONCE PO 08/04/21 17:00 08/04/21 17:01 DC 08/04/21 17:22 Iohexol (Omnipaque 300 Mg/ml) 75 ml 1X ONCE IV 08/05/21 10:00 08/05/21 10:02 DC 08/05/21 10:00 Iohexol (Omnipaque 240 Mg/ml) 50 ml 1X ONCE PO 08/05/21 10:00 08/05/21 10:02 DC 08/05/21 10:00 Justifications for Admission Other Justification MARIBETH EVANGELISTA MD Aug 05, 2021 14:39
[2021-08-05] MEDS ORDERED: FUROSEMIDE 40 MG/4 ML VIAL. IVP ONE (14:45)
[2021-08-05] MEDS ORDERED: ALBUMIN HUMAN 5% 250 ML IV ONE (14:45)
[2021-08-05] MEDS ORDERED: LACTULOSE 20 GM/30 ML SOLUTION. PO PRN (14:45)
--- NOTE | 2021-08-05 14:55 | NUR ---
Pharmacy Warfarin Dosing Note S: Pharmacy consulted to assist with anticoagulation therapy started PAPER SALES REPRESENTATIVE O: ELIEZER MAHAN is a 41 year old M with factor V leiden LABS: Last INR: 2.8 Last HGB: 7.5 Last HCT: 22.2 Last PLT: 153 Last dose of 1 mg given on 08/04/21 at 1722 A:INR of 2.8 is within desired range. Target range for this patient is: 2 -3 P: Warfarin dose: 2 mg Today at 1600 Bridge Therapy: None Next INR due 08/06/21 AM Pharmacy anticoagulation service will continue to follow. MARK [facility], 08/05/21 [id number]
[2021-08-05 15:00] VITALS: BP 103/47
[2021-08-05] MEDS ORDERED: WARFARIN 2 MG TABLET. PO ONE (16:00)
[2021-08-05] MEDS: diphenhydrAMINE HCL 25 MG CAPSULE PO PRN (16:26)
[2021-08-05] MEDS: oxyCODONE IR 5 MG TABLET PO PRN (16:26)
[2021-08-05 19:00] VITALS: BP 98/31
[2021-08-05 23:00] VITALS: BP 103/42
[2021-08-06 03:00] VITALS: BP 107/37
[2021-08-06 07:00] VITALS: BP 94/42
[2021-08-06 07:08] LABS: BASO # 0.1 x10^3/uL (0.0-0.2); BASO % 1 % (0-3); EOS # 0.2 x10^3/uL (0.0-0.7); EOS % 3 % (0-3); HEMATOCRIT 21.2 % (39.0-53.0); LYMPH # 2.2 x10^3/uL (1.0-4.8); LYMPH % 25 % (24-48); MEAN CORPUSCULAR HEMOGLOBIN 34 pg (25-35); MEAN CORPUSCULAR HGB CONC 33 g/dL (31-37); MEAN CORPUSCULAR VOLUME 104 fL (79-100); MONO # 0.2 x10^3/uL (0.0-1.1); MONO % 2 % (0-9); NEUT # 6.1 x10^3/uL (1.8-7.7); NEUT % 69 % (31-73); PLATELET COUNT 150 x10^3/uL (140-400); RED BLOOD COUNT 2.04 x10^6/uL (4.30-5.70); RED CELL DISTRIBUTION WIDTH 26.2 % (11.5-14.5); WHITE BLOOD COUNT 8.7 x10^3/uL (4.0-11.0)
[2021-08-06 07:33] LABS: PROTHROMBIN TIME PATIENT 57.9 SEC (11.7-14.0)
[2021-08-06 07:55] LABS: ALBUMIN 1.5 g/dL (3.4-5.0); ALBUMIN/GLOBULIN RATIO 0.4 (1.0-1.7); CREATININE 2.2 mg/dL (0.7-1.3); GFR 32.8; POTASSIUM 5.5 mmol/L (3.5-5.1); TOTAL BILIRUBIN 16.2 mg/dL (0.2-1.0); TOTAL PROTEIN 4.9 g/dL (6.4-8.2)
[2021-08-06] MEDS ORDERED: DEXTROSE 50% 25 GM / 50ML DISP.SYRIN. IV ONE (08:00)
[2021-08-06] MEDS ORDERED: SODIUM BICARB ADULT 8.4% 50 MEQ/50 ML DISP.SYRIN. ONE (08:00)
[2021-08-06] MEDS ORDERED: EPINEPHrine SYRINGE 1 MG/10 ML SYRINGE. ONE (08:00)
[2021-08-06] MEDS ORDERED: CALCIUM CHLORIDE 1,000 MG/10 ML DISP.SYRIN ONE (08:00)
[2021-08-06] MEDS ORDERED: MIDAZOLAM HCL/PF 5 MG/5 ML VIAL. ONE (08:00)
[2021-08-06] MEDS: DEXTROSE 50% 25 GM / 50ML DISP.SYRIN. IV PRN ×2 (08:38→11:42)
[2021-08-06] MEDS: SPIRONOLACTONE 25 MG TABLET PO SCH (08:44)
[2021-08-06] MEDS: PANTOPRAZOLE 40 MG TABLET.DR. PO SCH (08:50)
[2021-08-06] MEDS: FOLIC ACID 1 MG TABLET. PO SCH (08:50)
[2021-08-06] MEDS: VITAMIN B12,B9,B6 COMPLEX 1 TABLET. PO SCH (08:50)
[2021-08-06] MEDS: THIAMINE 100 MG TABLET. PO SCH (08:50)
[2021-08-06] MEDS: SENNOSIDES/DOCUSATE 8.6/50MG TABLET. PO SCH (08:50)
[2021-08-06] MEDS: MULTIVITAMIN with MINERAL TABLET. PO SCH (08:50)
--- NOTE | 2021-08-06 09:12 | PDOC ---
[employer] PROGRESS NOTE Date of Service DOS: DATE: 08/06/21 TIME: 09:12 Chief Complaint Chief Complaint Liver cirrhosis suspect alcoholic. Work-up for hemochromatosis. Anemia history of alcohol use. Small volume ascites. Hx Factor 5 Leiden on home Warfarin Alcoholic hepatitis/cirrhosis - small ascites on US @ [facility] Anemia, thrombocytopenia, coagulopathy, hyponatremia, mildly elevated ammonia H/o Factor V Leiden on Warfarin w/ cheek wound -Patient transferred from outside emergency room yesterday for further evaluation of liver failure -Notably low hemoglobin. Transfuse and recheck. Basic anemia work-up -LFTs elevated throughout. Consult to GI. -Mild ascites and lower extremity edema. Will start patient on low-dose Aldactone and increase as needed -Should ascites worsening happy to perform bedside paracentesis if needed -Low hemoglobin and INR 2.4 we will hold off warfarin for the moment. Daily INR checks. No apparent bleeding -Check abdominal ultrasound -Home meds resumed as indicated -We will at least start DVT prophylaxis -Salt restricted fluid restricted diet History of Present Illness History of Present Illness Mr Holm is a 41 y/o male w/ PMHx FV leiden on warfarin, heavy ETOH abuse was evaluated at [facility] for bleeding from cheek laceration. He was transferred to [facility] for further care. Initial labs: WBC 12.6, Hgb 5.3, MCV 115, plt 175, Na 133, K 3, BUN 11, Cr 0.9, bili 15.2, direct 10.2, AST 133, ALT 32, Alk Phos 105, ammonia 25, lipase 232, COVID negative. CT w/ cholelithiasis w/ superimposed GB distention and wall thickening and surrounding stranding, suspected hepatic cirrhosis and changes related to portal hypertension, mildd diffuse bowel wall thickening due to presence os small ascites and mesenteric stranding, diverticulosis, splenomegaly and splenorenal shunt and prominent collateral vessels within mesentery and retroperitoneum. US shows cirrhosis, small ascites, moderate splenomegaly, cholelithiasis and biliary sludge, and CBD 4mm. 08/06: Labs much worse today K5.5, CR up to 2.2, glucose 29, bilirubin 16.2, INR 6.9, Hb 7, more confused. No bleeding noted. Discussed with father at bedside overall poor prognosis. Discussed with nephrology will start his midodrine and D10 for hypoglycemia sodium bicarb for acidemia. 08/05: Notes his abdomen has swollen further, feels worse. a little more trouble breathing today. Thinks it is August. Hb 7.5, NA 127, CR 1.3, bilirubin 14.5, albumin 1.5, INR2.8. He and his mother tearful today noting his sister of liver disease at a young age. CT abdomen pelvis reviewed bilateral basilar opacities cholelithiasis significant anasarca 08/04: patient evaluated and examined at bedside. Resting in bed. bleeding much improved. still closely monitor. family at bedside do not feel comfortable with patient at home. try pt ot but suspect patient will need to return home. 08/03: eval and examined at bedside. somehow ripped stitches out on face. profu sely bleeding. FFP and vitamin K. transfuse as needed. 08/02: Patient eval and examined at bedside. Waiting on further workup. Gi following. Plan discussed wtih bedside rn. 08/01: Patient evaluated at bedside. Complaining of bandlike abdominal pain try G I cocktail please. Benadryl for rash. Okay with warfarin back on. Still will hemochromatosis work-up pending. Sodium a bit lower today today we will just keep a close eye on this for the moment. 07/31: Patient evaluated examined at bedside. He was resting in bed reporting some abdominal pain. The pain interestingly not much associated with food as it is movement. Will resume warfarin today with improved hemoglobin. Hemochromatosis work-up pending. Vitals/I&O Vitals/I&O: Vital Signs Date Time Temp Pulse Resp B/P (MAP) Pulse Ox O2 Delivery O2 Flow Rate FiO2 08/06/21 03:00 98.6 116 18 107/37 (60) 97 Room Air 98.6 Physical Exam General: Other (jaundice) Heart: Regular rate, Normal S1, Normal S2 Lungs: Clear Abdomen: Soft Extremities: No clubbing, No cyanosis Skin: No significant lesion Labs Labs: Laboratory Tests Test 08/05/21 14:10 08/06/21 05:40 08/06/21 08:42 Ammonia 32 mcmol/L (11-34) White Blood Count 8.7 x10^3/uL (4.0-11.0) Red Blood Count 2.04 x10^6/uL (4.30-5.70) Hemoglobin 7.0 g/dL (13.0-17.5) Hematocrit 21.2 % (39.0-53.0) Mean Corpuscular Volume 104 fL (79-100) Mean Corpuscular Hemoglobin 34 pg (25-35) Mean Corpuscular Hemoglobin Concent 33 g/dL (31-37) Red Cell Distribution Width 26.2 % (11.5-14.5) Platelet Count 150 x10^3/uL (140-400) Neutrophils (%) (Auto) 69 % (31-73) Lymphocytes (%) (Auto) 25 % (24-48) Monocytes (%) (Auto) 2 % (0-9) Eosinophils (%) (Auto) 3 % (0-3) Basophils (%) (Auto) 1 % (0-3) Neutrophils # (Auto) 6.1 x10^3/uL (1.8-7.7) Lymphocytes # (Auto) 2.2 x10^3/uL (1.0-4.8) Monocytes # (Auto) 0.2 x10^3/uL (0.0-1.1) Eosinophils # (Auto) 0.2 x10^3/uL (0.0-0.7) Basophils # (Auto) 0.1 x10^3/uL (0.0-0.2) Prothrombin Time 57.9 SEC (11.7-14.0) Prothromb Time International Ratio 6.9 (0.8-1.1) Sodium Level 126 mmol/L (136-145) Potassium Level 5.5 mmol/L (3.5-5.1) Chloride Level 94 mmol/L (98-107) Carbon Dioxide Level 10 mmol/L (21-32) Anion Gap 22 (6-14) Blood Urea Nitrogen 35 mg/dL (8-26) Creatinine 2.2 mg/dL (0.7-1.3) Estimated GFR (Cockcroft-Gault) 32.8 BUN/Creatinine Ratio 16 (6-20) Glucose Level 29 mg/dL (70-99) Calcium Level 7.0 mg/dL (8.5-10.1) Total Bilirubin 16.2 mg/dL (0.2-1.0) Aspartate Amino Transf (AST/SGOT) 297 U/L (15-37) Alanine Aminotransferase (ALT/SGPT) 82 U/L (16-63) Alkaline Phosphatase 91 U/L (46-116) Total Protein 4.9 g/dL (6.4-8.2) Albumin 1.5 g/dL (3.4-5.0) Albumin/Globulin Ratio 0.4 (1.0-1.7) Glucose (Fingerstick) 89 mg/dL (70-99) Comment Review of Relevant I have reviewed the following items roberto (where applicable) has been applied. Medications: Current Medications Medications (Trade) Dose Ordered Sig/Barbara Route PRN Reason Start Time Stop Time Status Last Admin Dose Admin Iohexol (Omnipaque 300 Mg/ml) 75 ml 1X ONCE IV 08/05/21 10:00 08/05/21 10:02 DC 08/05/21 10:00 Iohexol (Omnipaque 240 Mg/ml) 50 ml 1X ONCE PO 08/05/21 10:00 08/05/21 10:02 DC 08/05/21 10:00 Furosemide (Lasix) 40 mg 1X ONCE IVP 08/05/21 14:45 08/05/21 14:46 DC 08/05/21 14:59 Albumin Human 250 ml @ 62.5 mls/hr 1X ONCE IV 08/05/21 14:45 08/05/21 18:44 DC 08/05/21 14:59 Warfarin Sodium (Coumadin) 2 mg 1X WARF ONCE PO 08/05/21 16:00 08/05/21 16:01 DC 08/05/21 16:21 Dextrose (Dextrose 50%-Water Syringe) 12.5 gm PRN Q15MIN PRN IV SEE COMMENTS 08/06/21 08:15 08/06/21 08:38 Justifications for Admission Other Justification MARIBETH EVANGELISTA MD Aug 06, 2021 09:12
[2021-08-06] MEDS ORDERED: SODIUM BICARB ADULT 8.4% 50 MEQ/50 ML DISP.SYRIN. IV ONE (09:15)
--- NOTE | 2021-08-06 09:19 | NUR ---
called consult to dr fajardo at this time
--- NOTE | 2021-08-06 09:43 | PDOC ---
Date of Service: DATE: 08/06/21 TIME: 09:38 Subjective: Subjective: Mumbling, appears to be talking to someone who's not here. Objective: Objective: Note nephrology asked to see. Vital Signs: Vital Signs Date Time Temp Pulse Resp B/P (MAP) Pulse Ox O2 Delivery O2 Flow Rate FiO2 08/06/21 03:00 98.6 116 18 107/37 (60) 97 Room Air 98.6 Labs: Laboratory Tests Test 08/05/21 14:10 08/06/21 05:40 08/06/21 08:42 Ammonia 32 mcmol/L White Blood Count 8.7 x10^3/uL Red Blood Count 2.04 x10^6/uL Hemoglobin 7.0 g/dL Hematocrit 21.2 % Mean Corpuscular Volume 104 fL Mean Corpuscular Hemoglobin 34 pg Mean Corpuscular Hemoglobin Concent 33 g/dL Red Cell Distribution Width 26.2 % Platelet Count 150 x10^3/uL Neutrophils (%) (Auto) 69 % Lymphocytes (%) (Auto) 25 % Monocytes (%) (Auto) 2 % Eosinophils (%) (Auto) 3 % Basophils (%) (Auto) 1 % Neutrophils # (Auto) 6.1 x10^3/uL Lymphocytes # (Auto) 2.2 x10^3/uL Monocytes # (Auto) 0.2 x10^3/uL Eosinophils # (Auto) 0.2 x10^3/uL Basophils # (Auto) 0.1 x10^3/uL Prothrombin Time 57.9 SEC Prothromb Time International Ratio 6.9 Sodium Level 126 mmol/L Potassium Level 5.5 mmol/L Chloride Level 94 mmol/L Carbon Dioxide Level 10 mmol/L Anion Gap 22 Blood Urea Nitrogen 35 mg/dL Creatinine 2.2 mg/dL Estimated GFR (Cockcroft-Gault) 32.8 BUN/Creatinine Ratio 16 Glucose Level 29 mg/dL Calcium Level 7.0 mg/dL Total Bilirubin 16.2 mg/dL Aspartate Amino Transf (AST/SGOT) 297 U/L Alanine Aminotransferase (ALT/SGPT) 82 U/L Alkaline Phosphatase 91 U/L Total Protein 4.9 g/dL Albumin 1.5 g/dL Albumin/Globulin Ratio 0.4 Glucose (Fingerstick) 89 mg/dL Imaging: C/A/P CT 1/18 IMPRESSION: 1. Anasarca 2. Probable cirrhosis and portal hypertension with mild perihepatic ascites, gastroesophageal varices, recanalized umbilical vein, and splenomegaly. Gastroenterology consultation recommended. 3. Groundglass opacities and interlobular septal thickening in the bilateral upper lobes suggestive mild pulmonary edema. An atypical infectious processes less likely but not excluded. Milder right lower lobe atelectasis versus less likely early pneumonia. 4. Thickening of the distal duodenum and proximal jejunum possibly representing focal inflammation/enteritis of uncertain etiology. 5. Cholelithiasis PE: GEN: chronically ill LUNGS: diminished HEART: tachycardic ABD: anasarca SKIN: jaundice NEURO/PSYCH: confused A/P: Alcoholic hepatitis/cirrhosis Anemia (worse), thrombocytopenia, hyponatremia, BERNY, hypoglycemia H/o Factor V Leiden on Warfarin, coagulopathy (INR 6.9) -- Labs and mental status worse, will d/w Dr. Vargas. Justicifation of Admission Dx: Justifications for Admission: Justification of Admission Dx: Yes ABIGAIL ALVAREZ Aug 06, 2021 09:43
[2021-08-06 11:00] VITALS: BP 91/39
[2021-08-06] MEDS ORDERED: IV DEXTROSE 10% 500 ML IV SCH (12:00)
--- NOTE | 2021-08-06 12:03 | PDOC2 ---
CONSULT Date of Consult Date of Consult DATE: 08/06/21 TIME: 11:46 Reason for Consult Reason for Consult: BERNY Identification/Chief Complaint Chief Complaint Unable to obtain from Pt 2/2 decreased responsiveness Source Source: Caregiver, Chart review History of Present Illness Reason for Visit: Patient is a 41 y/o CM w/ PMHx FV leiden on warfarin, heavy ETOH abuse was evaluated at [facility] for bleeding from cheek laceration. He was transferred to [facility] for further care on 07/30/2020 H/o heavy drinking , he had reported that he has been sober since "before ." Has had some abdominal cramping and jaundice since around that time. He had previous paracentesis <[address] [facility] - details unclear . Denies obvious GI bleeding.Occasional reflux depending No dysphagia, n/v, hematemesis, diarrhea, constipation, hematochezia, melena, or change in appetite or weight. No F/C , CP or SOB reported. No Urinary complaints Denies use of NSAIDs. . Father at bedside - Unable to give much details. 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 FHx- his sister of liver disease 2/2 ETOH at a young age. BP's Low, Abnormal E-Lytes, BERNY currently. No Christiansen . BG earlier today was 12 . He recd IB bicarb x 1 amp . Recd Lasix yesterday . CT done at [facility] - unsure if recd Contrast. I dont have access to [facility] Initial labs: WBC 12.6, Hgb 5.3, Na 133, K 3, BUN 11, Cr 0.9, bili 15.2, direct 10.2, AST 133, ALT 32, Alk Phos 105, ammonia 25, lipase 232, COVID negative. CT w/ cholelithiasis w/ superimposed GB distention and wall thickening and surrounding stranding, suspected hepatic cirrhosis and changes related to portal hypertension, mild diffuse bowel wall thickening due to presence os small ascites and mesenteric stranding, diverticulosis, splenomegaly and splenorenal shunt and prominent collateral vessels within mesentery and retroperitoneum. US shows cirrhosis, small ascites, moderate splenomegaly, cholelithiasis and biliary sludge, and CBD 4mm. Past Medical History Past Medical History Factor V Leiden Heme/Onc: Other (factor v) Hepatobiliary: Cirrhosis Past Surgical History Past Surgical History: No pertinent history Family History Family History Sister at Young age due to Liver issues 2/2 ETOH abuse Father HTN - admitted at [facility] approx 6 months back with Systolic 225 Family History: Other (no pertinent family hx) Social History Social History Has 13 year old daughter Hx of ETOH abuse Works as a Cook at a Restaurant ALCOHOL: heavy (sober since 06/2021) Current Medications Current Medications Current Medications Multivitamins 10 ml/Thiamine HCl 100 mg/Folic Acid 1 mg/Sodium Chloride 1,011.2 ml @ 100 mls/ hr QHS IV Last administered on 07/30/21at 20:28; Start 07/29/21 at 19:00; Stop 07/31/21 at 08:00; Status DC Multivitamins (Thera M Plus) 1 tab DAILY PO Last administered on 08/06/21at 08:50; Start 07/31/21 at 09:00 Folic Acid (Folic Acid) 1 mg DAILY PO ; Start 08/03/21 at 09:00; Status UNV Thiamine Mononitrate (Vitamin B-1) 100 mg DAILY PO Last administered on 08/06/21at 08:50; Start 07/31/21 at 09:00 Lorazepam (Ativan) 4 mg PRN Q1HR PRN PO For CIWA 8-14 Last administered on 08/06/21at 05:28; Start 07/29/21 at 18:45 Lorazepam (Ativan) 8 mg PRN Q1HR PRN PO For CIWA 15 or greater; Start 07/29/21 at 18:45 Vitamin B Complex (Folbic Tablet) 1 tab DAILY PO Last administered on 08/06/21at 08:50; Start 07/30/21 at 09:00 Folic Acid (Folic Acid) 1 mg DAILY PO Last administered on 08/06/21at 08:50; Start 07/31/21 at 09:00 Piperacillin Sod/ Tazobactam Sod (Zosyn Per Pharmacy) 1 each PRN DAILY PRN MC SEE COMMENTS; Start 07/29/21 at 19:00; Stop 07/29/21 at 18:58; Status DC Sodium Chloride 1,000 ml @ 100 mls/hr Q10H IV Last administered on 07/29/21at 20:06; Start 07/29/21 at 19:00; Stop 07/30/21 at 04:59; Status DC Ondansetron HCl (Zofran) 4 mg PRN Q6HRS PRN IVP NAUSEA/VOMITING; Start 07/29/21 at 19:00 Calcium Carbonate/ Glycine (Tums) 500 mg PRN Q3HRS PRN PO UPSET STOMACH; Start 07/29/21 at 19:00 Zolpidem Tartrate (Ambien) 5 mg PRN QHS PRN PO INSOMNIA, MAY REPEAT IN 1HR; Start 07/29/21 at 19:00; Stop 08/05/21 at 14:37; Status DC Info (Non-Icu Electrolyte Protocol) 1 ea PRN DAILY PRN MC SEE COMMENTS; Start 07/29/21 at 19:00 Oxycodone HCl (Roxicodone) 5 mg PRN Q4HRS PRN PO MILD PAIN, 1ST CHOICE; Start 07/29/21 at 19:00 Oxycodone HCl (Roxicodone) 10 mg PRN Q4HRS PRN PO MODERATE PAIN, SEVERE PAIN Last administered on 08/05/21at 16:26; Start 07/29/21 at 19:00 Senna/Docusate Sodium (Senna Plus) 1 tab BID PO Last administered on 08/05/21at 09:05; Start 07/29/21 at 21:00 Spironolactone (Aldactone) 25 mg DAILY PO Last administered on 07/30/21at 07:54; Start 07/30/21 at 09:00; Stop 07/30/21 at 12:49; Status DC Ciprofloxacin/ Dextrose 200 ml @ 200 mls/hr Q12HR IV Last administered on 07/30/21at 07:53; Start 07/29/21 at 21:00; Stop 07/30/21 at 11:40; Status DC Metronidazole (Flagyl) 500 mg Q8HRS PO Last administered on 07/30/21at 06:06; Start 07/29/21 at 22:00; Stop 07/30/21 at 11:40; Status DC Multi-Ingredient Mouthwash/Gargle (Gi Cocktail) 20 ml PRN QID PRN PO CHEST PAIN; Start 07/30/21 at 12:30 Spironolactone (Aldactone) 50 mg DAILY PO Last administered on 08/06/21at 08:44; Start 07/31/21 at 09:00 Pantoprazole Sodium (Protonix) 40 mg DAILYAC PO Last administered on 08/06/21at 08:50; Start 07/31/21 at 10:30 Warfarin Sodium (Coumadin) 4 mg DAILY16 PO Last administered on 08/02/21at 15:52; Start 07/31/21 at 16:00; Stop 08/04/21 at 11:11; Status DC Warfarin Sodium (Coumadin Per Physician) 1 each PRN DAILY PRN MC SEE COMMENTS Last administered on 08/03/21at 17:57; Start 07/31/21 at 12:00; Stop 08/04/21 at 11:05; Status DC Diphenhydramine HCl (Benadryl) 50 mg PRN Q4HRS PRN PO ITCHING Last administered on 08/05/21at 16:26; Start 08/01/21 at 10:45 Cellulose (Surgicel Hemostat 4x8) 1 each 1X ONCE TP Last administered on 08/02/21at 18:55; Start 08/02/21 at 18:30; Stop 08/02/21 at 18:32; Status DC Phytonadione (Vitamin K Ampule) 5 mg 1X ONCE SQ Last administered on 08/03/21at 07:52; Start 08/03/21 at 07:30; Stop 08/03/21 at 07:32; Status DC Acetaminophen (Tylenol) 650 mg 1X PRN PRN PO PRE-TRANSFUSION; Start 08/03/21 at 10:15; Stop 08/04/21 at 10:14; Status DC Warfarin Sodium (Coumadin Per Pharmacy) 1 each PRN DAILY PRN MC SEE COMMENTS Last administered on 08/05/21at 14:53; Start 08/04/21 at 11:15; Stop 08/06/21 at 09:10; Status DC Warfarin Sodium (Coumadin) 1 mg 1X WARF ONCE PO Last administered on 08/04/21at 17:22; Start 08/04/21 at 17:00; Stop 08/04/21 at 17:01; Status DC Iohexol (Omnipaque 300 Mg/ml) 75 ml 1X ONCE IV Last administered on 08/05/21at 10:00; Start 08/05/21 at 10:00; Stop 08/05/21 at 10:02; Status DC Iohexol (Omnipaque 240 Mg/ml) 50 ml 1X ONCE PO Last administered on 08/05/21at 10:00; Start 08/05/21 at 10:00; Stop 08/05/21 at 10:02; Status DC Info (CONTRAST GIVEN -- Rx MONITORING) 1 each PRN DAILY PRN MC SEE COMMENTS; Start 08/05/21 at 10:15; Stop 08/07/21 at 10:14 Lactulose (Lactulose) 20 gm PRN DAILY PRN PO CONSTIPATION; Start 08/05/21 at 14:45 Furosemide (Lasix) 40 mg 1X ONCE IVP Last administered on 08/05/21at 14:59; Start 08/05/21 at 14:45; Stop 08/05/21 at 14:46; Status DC Albumin Human 250 ml @ 62.5 mls/hr 1X ONCE IV Last administered on 08/05/21at 14:59; Start 08/05/21 at 14:45; Stop 08/05/21 at 18:44; Status DC Warfarin Sodium (Coumadin) 2 mg 1X WARF ONCE PO Last administered on 08/05/21at 16:21; Start 08/05/21 at 16:00; Stop 08/05/21 at 16:01; Status DC Dextrose (Dextrose 50%-Water Syringe) 12.5 gm PRN Q15MIN PRN IV SEE COMMENTS Last administered on 08/06/21at 11:42; Start 08/06/21 at 08:15 Sodium Bicarbonate (Sodium Bicarb Adult 8.4% Syr) 50 meq 1X ONCE IV Last administered on 08/06/21at 10:43; Start 08/06/21 at 09:15; Stop 08/06/21 at 09:16; Status DC Active Scripts Active Reported Warfarin Sodium 4 Mg Tablet 4 Mg PO DAILY Allergies Allergies: Coded Allergies: Penicillins (Verified Allergy, Intermediate, 07/29/21) shellfish derived (Verified Allergy, Intermediate, 07/29/21) ROS Review of System As per hpi, rest of the ROS is negative . Unable to Obtain details 2/2 his condition Physical Exam Physical Exam GEN: appears chronically ill HEENT: Atraumatic, +sclerae icteric NECK Supple LUNGS: CTAB anteriorly, Non labored HEART: S1S2 ABD: some distention, soft, not tender EXTREMITY: BLE w/ edema/chronic skin changes SKIN: +jaundice, telangiectasia (chest, cheeks) NEURO/PSYCH: A & O 3 No Christiansen PSYCH Unable to Obtain - minimally responsive Vital Signs Vital Signs Date Time Temp Pulse Resp B/P (MAP) Pulse Ox O2 Delivery O2 Flow Rate FiO2 08/06/21 07:00 97.5 110 28 94/42 (59) 94 Room Air 97.5 Assessment & Plan BERNY -- Renal function declining since 08/02, No labs between 07/23 and 08/05 ; Worsening renal function, abnormal E-Lytes . UA orange (2/2 icterus), No RBC or WBC , CT scan Unremarkable Kidneys Recd IV contrast with Ct scan on 08/[address] done on 07/29 or 07/30 (not sure if w or w/o contrast) . Etiology suspect Hepatorenal/ SARAH ;UOP ? accuracy . Recd Lasix iv 08/05. On Aldactone as well . Currently Hypotensive Start Bicarb gtt , Midodrine . Pharmacy doesn't carry Terlipressin. Consider adding Octreotide . Strict I/O ,Christiansen Ordered , Hold Aldactone . Discussed with father at great length about prognosis , BERNY progression DRIVER UTILITY WORKER, Liver Tx OPTION with recent Hx of ETOH (decision to GI) Hyperkalemia - A2/2 BERNY, Hold Aldactone for now , correct Acidosis HypoNatremia- Na trending down , Start Bicarb gtt Acidosis- Bicarb gtt ; Once Glucose improves recommend dc D5W 10% and increase rate of Bicarb gtt- dw RN Elevated LFT's / alcoholic hepatitis/cirrhosis/portal hypertension - viral He patitis panel is negative. GI following HypoCal - Normal Ca after Correcting for low Albumin Hypotension - Hold Aldactone . Added Midodrine Profound anemia - on presentation , Recd PRBC , no obvious GI bleeding, iron sat elevated Cholelithiasis, GB sludge H/o Factor V Leiden on Warfarin COVID negative Thrombocytopenia Labs Labs Laboratory Tests Test 08/04/21 13:30 08/05/21 03:20 08/05/21 14:10 08/06/21 05:40 Prothrombin Time 33.7 SEC (11.7-14.0) 29.0 SEC (11.7-14.0) 57.9 SEC (11.7-14.0) Prothromb Time International Ratio 3.4 (0.8-1.1) 2.8 (0.8-1.1) 6.9 (0.8-1.1) White Blood Count 13.3 x10^3/uL (4.0-11.0) 8.7 x10^3/uL (4.0-11.0) Red Blood Count 2.23 x10^6/uL (4.30-5.70) 2.04 x10^6/uL (4.30-5.70) Hemoglobin 7.5 g/dL (13.0-17.5) 7.0 g/dL (13.0-17.5) Hematocrit 22.2 % (39.0-53.0) 21.2 % (39.0-53.0) Mean Corpuscular Volume 100 fL (79-100) 104 fL (79-100) Mean Corpuscular Hemoglobin 34 pg (25-35) 34 pg (25-35) Mean Corpuscular Hemoglobin Concent 34 g/dL (31-37) 33 g/dL (31-37) Red Cell Distribution Width 24.3 % (11.5-14.5) 26.2 % (11.5-14.5) Platelet Count 153 x10^3/uL (140-400) 150 x10^3/uL (140-400) Neutrophils (%) (Auto) 83 % (31-73) 69 % (31-73) Lymphocytes (%) (Auto) 13 % (24-48) 25 % (24-48) Monocytes (%) (Auto) 3 % (0-9) 2 % (0-9) Eosinophils (%) (Auto) 1 % (0-3) 3 % (0-3) Basophils (%) (Auto) 0 % (0-3) 1 % (0-3) Neutrophils # (Auto) 11.0 x10^3/uL (1.8-7.7) 6.1 x10^3/uL (1.8-7.7) Lymphocytes # (Auto) 1.7 x10^3/uL (1.0-4.8) 2.2 x10^3/uL (1.0-4.8) Monocytes # (Auto) 0.3 x10^3/uL (0.0-1.1) 0.2 x10^3/uL (0.0-1.1) Eosinophils # (Auto) 0.2 x10^3/uL (0.0-0.7) 0.2 x10^3/uL (0.0-0.7) Basophils # (Auto) 0.0 x10^3/uL (0.0-0.2) 0.1 x10^3/uL (0.0-0.2) Sodium Level 127 mmol/L (136-145) 126 mmol/L (136-145) Potassium Level 4.4 mmol/L (3.5-5.1) 5.5 mmol/L (3.5-5.1) Chloride Level 95 mmol/L (98-107) 94 mmol/L (98-107) Carbon Dioxide Level 18 mmol/L (21-32) 10 mmol/L (21-32) Anion Gap 14 (6-14) 22 (6-14) Blood Urea Nitrogen 27 mg/dL (8-26) 35 mg/dL (8-26) Creatinine 1.3 mg/dL (0.7-1.3) 2.2 mg/dL (0.7-1.3) Estimated GFR (Cockcroft-Gault) 60.2 32.8 BUN/Creatinine Ratio 21 (6-20) 16 (6-20) Glucose Level 72 mg/dL (70-99) 29 mg/dL (70-99) Calcium Level 7.0 mg/dL (8.5-10.1) 7.0 mg/dL (8.5-10.1) Total Bilirubin 14.5 mg/dL (0.2-1.0) 16.2 mg/dL (0.2-1.0) Aspartate Amino Transf (AST/SGOT) 117 U/L (15-37) 297 U/L (15-37) Alanine Aminotransferase (ALT/SGPT) 43 U/L (16-63) 82 U/L (16-63) Alkaline Phosphatase 134 U/L (46-116) 91 U/L (46-116) Total Protein 5.5 g/dL (6.4-8.2) 4.9 g/dL (6.4-8.2) Albumin 1.5 g/dL (3.4-5.0) 1.5 g/dL (3.4-5.0) Albumin/Globulin Ratio 0.4 (1.0-1.7) 0.4 (1.0-1.7) Ammonia 32 mcmol/L (11-34) Test 08/06/21 08:42 08/06/21 11:35 Glucose (Fingerstick) 89 mg/dL (70-99) 12 mg/dL (70-99) Laboratory Tests Test 08/05/21 14:10 08/06/21 05:40 08/06/21 08:42 08/06/21 11:35 Ammonia 32 mcmol/L (11-34) White Blood Count 8.7 x10^3/uL (4.0-11.0) Red Blood Count 2.04 x10^6/uL (4.30-5.70) Hemoglobin 7.0 g/dL (13.0-17.5) Hematocrit 21.2 % (39.0-53.0) Mean Corpuscular Volume 104 fL (79-100) Mean Corpuscular Hemoglobin 34 pg (25-35) Mean Corpuscular Hemoglobin Concent 33 g/dL (31-37) Red Cell Distribution Width 26.2 % (11.5-14.5) Platelet Count 150 x10^3/uL (140-400) Neutrophils (%) (Auto) 69 % (31-73) Lymphocytes (%) (Auto) 25 % (24-48) Monocytes (%) (Auto) 2 % (0-9) Eosinophils (%) (Auto) 3 % (0-3) Basophils (%) (Auto) 1 % (0-3) Neutrophils # (Auto) 6.1 x10^3/uL (1.8-7.7) Lymphocytes # (Auto) 2.2 x10^3/uL (1.0-4.8) Monocytes # (Auto) 0.2 x10^3/uL (0.0-1.1) Eosinophils # (Auto) 0.2 x10^3/uL (0.0-0.7) Basophils # (Auto) 0.1 x10^3/uL (0.0-0.2) Prothrombin Time 57.9 SEC (11.7-14.0) Prothromb Time International Ratio 6.9 (0.8-1.1) Sodium Level 126 mmol/L (136-145) Potassium Level 5.5 mmol/L (3.5-5.1) Chloride Level 94 mmol/L (98-107) Carbon Dioxide Level 10 mmol/L (21-32) Anion Gap 22 (6-14) Blood Urea Nitrogen 35 mg/dL (8-26) Creatinine 2.2 mg/dL (0.7-1.3) Estimated GFR (Cockcroft-Gault) 32.8 BUN/Creatinine Ratio 16 (6-20) Glucose Level 29 mg/dL (70-99) Calcium Level 7.0 mg/dL (8.5-10.1) Total Bilirubin 16.2 mg/dL (0.2-1.0) Aspartate Amino Transf (AST/SGOT) 297 U/L (15-37) Alanine Aminotransferase (ALT/SGPT) 82 U/L (16-63) Alkaline Phosphatase 91 U/L (46-116) Total Protein 4.9 g/dL (6.4-8.2) Albumin 1.5 g/dL (3.4-5.0) Albumin/Globulin Ratio 0.4 (1.0-1.7) Glucose (Fingerstick) 89 mg/dL (70-99) 12 mg/dL (70-99) Review All relevant outside records, renal labs, imaging studies, telemetry/EKG's were reviewed. Images Images : CT CHEST ABD PELVIS W/CONTRAST CT of the chest, abdomen, and pelvis 08/05/2021 INDICATION: Liver disease. Anasarca. Ascites. Shortness of breath. COMPARISON STUDY: Ultrasound of the abdomen, July 29, 2021. TECHNIQUE: Multidetector CT imaging of the chest, abdomen, and pelvis was performed following the administration of contrast. FINDINGS: Heart size is normal. No pericardial effusion is identified. No pathologically enlarged mediastinal seen. Patchy groundglass infiltrates are seen in the upper lobes. Mild intralobular septal thickening is seen bilaterally. No significant pleural effusion is identified. There is mild right lower lobe volume loss is minimal bronchograms. Findings most likely represent atelectasis. A mild or early pneumonia is difficult to completely exclude. Mild perihepatic ascites is seen in the right upper quadrant surrounding the liver. Trace free fluid is seen in the pelvis. Diffuse body wall edema/anasarca particularly involving the abdomen pelvis noted. The timing of contrast bolus makes evaluation of the hepatic parenchyma somewhat suboptimal. Evaluation of the intrahepatic portal veins is not possible. The liver has somewhat nodular contour. There is recanalization of the umbilical vein. Main portal vein appears to be somewhat small. The splenic vein appears be patent. 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 The spleen is enlarged. Oral contrast is seen predominantly within the stomach and proximal duodenum. There is thickening of the distal duodenum and proximal jejunum. No other bowel obstruction is seen. Kidneys are grossly unremarkable in appearance. Adrenal glands are unremarkable. Evaluation of the pancreas is somewhat limited given diffuse edema. The pancreas appears grossly unremarkable. Cholelithiasis noted. There is likely a splenorenal shunt. There is a small umbilical hernia containing fat mesenteric fat and vessels, without bowel. No acute osseous changes are identified. IMPRESSION: 1. Anasarca 2. Probable cirrhosis and portal hypertension with mild perihepatic ascites, gastroesophageal varices, recanalized umbilical vein, and splenomegaly. Gastroenterology consultation recommended. 3. Groundglass opacities and interlobular septal thickening in the bilateral upper lobes suggestive mild pulmonary edema. An atypical infectious processes less likely but not excluded. Milder right lower lobe atelectasis versus less likely early pneumonia. 4. Thickening of the distal duodenum and proximal jejunum possibly representing focal inflammation/enteritis of uncertain etiology. 5. Cholelithiasis ANDERSON GARNICA MD Aug 06, 2021 12:03
[2021-08-06] MEDS ORDERED: IV DEXTROSE 10% 1,000 ML IV SCH (12:15)
[2021-08-06] MEDS ORDERED: MIDODRINE 5 MG TABLET PO SCH (13:00)
[2021-08-06] MEDS ORDERED: SODIUM BICARBONATE VIAL 150 MEQ in IV DEXTROSE 5% 1,000 ML IV SCH (13:33)
[2021-08-06] MEDS ORDERED: DEXMEDETOMIDINE 400 MCG in IV NORMAL SALINE 100ML 96 ML IV PRN (14:30)
[2021-08-06] MEDS ORDERED: ATROPINE 0.5 MG/5 ML DISP.SYRINGE. IV PRN (14:30)
[2021-08-06] MEDS ORDERED: POLYVINYL ALCOHOL 1.4% OPHTH SOLUTION 15ML BOTTLE. OU PRN (14:30)
[2021-08-06] MEDS ORDERED: MIDAZOLAM 100mg/100ml NS BAG 100 ML IV PRN (14:30)
[2021-08-06 14:52] LABS: HEMATOCRIT 18.2 % (39.0-53.0); HEMOGLOBIN 5.7 g/dL (13.0-17.5)
[2021-08-06 15:00] VITALS: BP 100/39
[2021-08-06 16:24] LABS: BASE EXCESS ABG -25 mmol/L (-3-3); HCO3 ABG 8 mmol/L (21-28); PCO2 ABG 54 mmHg (35-46); PO2 ABG 122 mmHg (75-108); SAT O2 ABG 95 % (92-99)
[2021-08-06 16:31] LABS: FIO2 ABG 60% AVAPS
[2021-08-06] MEDS ORDERED: MORPHINE SULFATE 2 MG/ML INJ. IVP PRN (17:15)
--- NOTE | 2021-08-06 17:21 | PHYS DOC ---
CODE REPORT CODE REPORT Called at 1359 when SMASH FIXER noted no respiratory activity. Had just been evaluated 1357. On exam no pulse or respiratory activity noted. I called CODE Blue and began CPR. Given epinephrine, D10, sodium bicarbonate. Rhythm Asystole. Given epinephrine x3 and ROSC obtained at 1407, lost, then obtained again at [address] Lucas at 1418 with 2 attempts with 7.5 at 22cm with bilateral auscultation of breath sounds. OGT and left EJ placed by nursing. Transferred to ICU. Mother and Father notified at bedside. They request DNR from now onward and are considering comfort measures, are awaiting his brother Uziel to arrive CC time 37 minutes MARIBETH EVANGELISTA MD Aug 06, 2021 17:21
--- NOTE | 2021-08-06 17:22 | NUR ---
pt coded at 1400, see code blue sheet, pt transferred to ICU at 1600, report given to TAY Elizondo.
--- NOTE | 2021-08-06 19:34 | NUR ---
comfort care - patient transferred to icu, vital signs critical, family at bedside, dnr in place and family did not wish to further aggress care. once brother juwan at bedside, family requested terminal extubation. mtn notified, okay to withdraw care. patient given comfort meds and extubated at 1637. patient at 1642. mtn notified of TOD.
[2021-08-06] MEDS ORDERED: CHLORHEXIDINE 0.12% 15 ML MOUTHWASH. MM SCH (21:00)
--- NOTE | 2021-08-07 00:04 | PDOC3 ---
Discharge Summary Visit Information Date of Admission: Jul 29, 2021 Date of Discharge: Aug 06, 2021 Admitting Diagnosis: Abnormal bleeding,hepatic failure Final Diagnosis Hepatic failure Brief Hospital Course Allergies Allergies Coded Allergies Type Severity Reaction Last Updated Verified Penicillins Allergy Intermediate 07/29/21 Yes shellfish derived Allergy Intermediate 07/29/21 Yes Vital Signs Vital Signs Date Time Temp Pulse Resp B/P (MAP) Pulse Ox O2 Delivery O2 Flow Rate FiO2 08/06/21 17:30 22 90 Ventilator 08/06/21 15:00 91 100/39 (59) 08/06/21 11:00 96.3 96.3 Lab Results Laboratory Tests Test 08/05/21 03:20 08/05/21 14:10 08/06/21 05:40 08/06/21 08:42 White Blood Count 13.3 x10^3/uL (4.0-11.0) 8.7 x10^3/uL (4.0-11.0) Red Blood Count 2.23 x10^6/uL (4.30-5.70) 2.04 x10^6/uL (4.30-5.70) Hemoglobin 7.5 g/dL (13.0-17.5) 7.0 g/dL (13.0-17.5) Hematocrit 22.2 % (39.0-53.0) 21.2 % (39.0-53.0) Mean Corpuscular Volume 100 fL (79-100) 104 fL (79-100) Mean Corpuscular Hemoglobin 34 pg (25-35) 34 pg (25-35) Mean Corpuscular Hemoglobin Concent 34 g/dL (31-37) 33 g/dL (31-37) Red Cell Distribution Width 24.3 % (11.5-14.5) 26.2 % (11.5-14.5) Platelet Count 153 x10^3/uL (140-400) 150 x10^3/uL (140-400) Neutrophils (%) (Auto) 83 % (31-73) 69 % (31-73) Lymphocytes (%) (Auto) 13 % (24-48) 25 % (24-48) Monocytes (%) (Auto) 3 % (0-9) 2 % (0-9) Eosinophils (%) (Auto) 1 % (0-3) 3 % (0-3) Basophils (%) (Auto) 0 % (0-3) 1 % (0-3) Neutrophils # (Auto) 11.0 x10^3/uL (1.8-7.7) 6.1 x10^3/uL (1.8-7.7) Lymphocytes # (Auto) 1.7 x10^3/uL (1.0-4.8) 2.2 x10^3/uL (1.0-4.8) Monocytes # (Auto) 0.3 x10^3/uL (0.0-1.1) 0.2 x10^3/uL (0.0-1.1) Eosinophils # (Auto) 0.2 x10^3/uL (0.0-0.7) 0.2 x10^3/uL (0.0-0.7) Basophils # (Auto) 0.0 x10^3/uL (0.0-0.2) 0.1 x10^3/uL (0.0-0.2) Prothrombin Time 29.0 SEC (11.7-14.0) 57.9 SEC (11.7-14.0) Prothromb Time International Ratio 2.8 (0.8-1.1) 6.9 (0.8-1.1) Sodium Level 127 mmol/L (136-145) 126 mmol/L (136-145) Potassium Level 4.4 mmol/L (3.5-5.1) 5.5 mmol/L (3.5-5.1) Chloride Level 95 mmol/L (98-107) 94 mmol/L (98-107) Carbon Dioxide Level 18 mmol/L (21-32) 10 mmol/L (21-32) Anion Gap 14 (6-14) 22 (6-14) Blood Urea Nitrogen 27 mg/dL (8-26) 35 mg/dL (8-26) Creatinine 1.3 mg/dL (0.7-1.3) 2.2 mg/dL (0.7-1.3) Estimated GFR (Cockcroft-Gault) 60.2 32.8 BUN/Creatinine Ratio 21 (6-20) 16 (6-20) Glucose Level 72 mg/dL (70-99) 29 mg/dL (70-99) Calcium Level 7.0 mg/dL (8.5-10.1) 7.0 mg/dL (8.5-10.1) Total Bilirubin 14.5 mg/dL (0.2-1.0) 16.2 mg/dL (0.2-1.0) Aspartate Amino Transf (AST/SGOT) 117 U/L (15-37) 297 U/L (15-37) Alanine Aminotransferase (ALT/SGPT) 43 U/L (16-63) 82 U/L (16-63) Alkaline Phosphatase 134 U/L (46-116) 91 U/L (46-116) Total Protein 5.5 g/dL (6.4-8.2) 4.9 g/dL (6.4-8.2) Albumin 1.5 g/dL (3.4-5.0) 1.5 g/dL (3.4-5.0) Albumin/Globulin Ratio 0.4 (1.0-1.7) 0.4 (1.0-1.7) Ammonia 32 mcmol/L (11-34) Glucose (Fingerstick) 89 mg/dL (70-99) Test 08/06/21 11:35 08/06/21 13:54 08/06/21 14:25 08/06/21 14:34 Glucose (Fingerstick) 12 mg/dL (70-99) 46 mg/dL (70-99) 266 mg/dL (70-99) Hemoglobin 5.7 g/dL (13.0-17.5) Hematocrit 18.2 % (39.0-53.0) Mean Corpuscular Hemoglobin Concent 31 g/dL (31-37) Test 08/06/21 15:30 O2 Saturation 95 % (92-99) Arterial Blood pH 6.80 (7.35-7.45) Arterial Blood pCO2 at Patient Temp 54 mmHg (35-46) Arterial Blood pO2 at Patient Temp 122 mmHg (75-108) Arterial Blood HCO3 8 mmol/L (21-28) Arterial Blood Base Excess -25 mmol/L (-3-3) FiO2 60% avaps Laboratory Tests Test 08/06/21 05:40 08/06/21 08:42 08/06/21 11:35 08/06/21 13:54 White Blood Count 8.7 x10^3/uL (4.0-11.0) Red Blood Count 2.04 x10^6/uL (4.30-5.70) Hemoglobin 7.0 g/dL (13.0-17.5) Hematocrit 21.2 % (39.0-53.0) Mean Corpuscular Volume 104 fL (79-100) Mean Corpuscular Hemoglobin 34 pg (25-35) Mean Corpuscular Hemoglobin Concent 33 g/dL (31-37) Red Cell Distribution Width 26.2 % (11.5-14.5) Platelet Count 150 x10^3/uL (140-400) Neutrophils (%) (Auto) 69 % (31-73) Lymphocytes (%) (Auto) 25 % (24-48) Monocytes (%) (Auto) 2 % (0-9) Eosinophils (%) (Auto) 3 % (0-3) Basophils (%) (Auto) 1 % (0-3) Neutrophils # (Auto) 6.1 x10^3/uL (1.8-7.7) Lymphocytes # (Auto) 2.2 x10^3/uL (1.0-4.8) Monocytes # (Auto) 0.2 x10^3/uL (0.0-1.1) Eosinophils # (Auto) 0.2 x10^3/uL (0.0-0.7) Basophils # (Auto) 0.1 x10^3/uL (0.0-0.2) Prothrombin Time 57.9 SEC (11.7-14.0) Prothromb Time International Ratio 6.9 (0.8-1.1) Sodium Level 126 mmol/L (136-145) Potassium Level 5.5 mmol/L (3.5-5.1) Chloride Level 94 mmol/L (98-107) Carbon Dioxide Level 10 mmol/L (21-32) Anion Gap 22 (6-14) Blood Urea Nitrogen 35 mg/dL (8-26) Creatinine 2.2 mg/dL (0.7-1.3) Estimated GFR (Cockcroft-Gault) 32.8 BUN/Creatinine Ratio 16 (6-20) Glucose Level 29 mg/dL (70-99) Calcium Level 7.0 mg/dL (8.5-10.1) Total Bilirubin 16.2 mg/dL (0.2-1.0) Aspartate Amino Transf (AST/SGOT) 297 U/L (15-37) Alanine Aminotransferase (ALT/SGPT) 82 U/L (16-63) Alkaline Phosphatase 91 U/L (46-116) Total Protein 4.9 g/dL (6.4-8.2) Albumin 1.5 g/dL (3.4-5.0) Albumin/Globulin Ratio 0.4 (1.0-1.7) Glucose (Fingerstick) 89 mg/dL (70-99) 12 mg/dL (70-99) 46 mg/dL (70-99) Test 08/06/21 14:25 08/06/21 14:34 08/06/21 15:30 Hemoglobin 5.7 g/dL (13.0-17.5) Hematocrit 18.2 % (39.0-53.0) Mean Corpuscular Hemoglobin Concent 31 g/dL (31-37) Glucose (Fingerstick) 266 mg/dL (70-99) O2 Saturation 95 % (92-99) Arterial Blood pH 6.80 (7.35-7.45) Arterial Blood pCO2 at Patient Temp 54 mmHg (35-46) Arterial Blood pO2 at Patient Temp 122 mmHg (75-108) Arterial Blood HCO3 8 mmol/L (21-28) Arterial Blood Base Excess -25 mmol/L (-3-3) FiO2 60% avaps Brief Hospital Course Mr Holm is a 41 y/o male w/ PMHx FV leiden on warfarin, heavy ETOH abuse was evaluated at [facility] for bleeding from cheek laceration. He was transferred to [facility] for further care. Initial labs: WBC 12.6, Hgb 5.3, MCV 115, plt 175, Na 133, K 3, BUN 11, Cr 0.9, bili 15.2, direct 10.2, AST 133, ALT 32, Alk Phos 105, ammonia 25, lipase 232, COVID negative. CT w/ cholelithiasis w/ superimposed GB distention and wall thickening and surrounding stranding, suspected hepatic cirrhosis and changes related to portal hypertension, mildd diffuse bowel wall thickening due to presence os small ascites and mesenteric stranding, diverticulosis, splenomegaly and splenorenal shunt and prominent collateral vessels within mesentery and retroperitoneum. US shows cirrhosis, small ascites, moderate splenomegaly, cholelithiasis and biliary sludge, and CBD 4mm. 07/31: Patient evaluated examined at bedside. He was resting in bed reporting some abdominal pain. The pain interestingly not much associated with food as it is movement. Will resume warfarin today with improved hemoglobin. Hemochromatosis work-up pending. 08/01: Patient evaluated at bedside. Complaining of bandlike abdominal pain try GI cocktail please. Benadryl for rash. Okay with warfarin back on. Still will hemochromatosis work-up pending. Sodium a bit lower today today we will just keep a close eye on this for the moment. 08/02: Patient eval and examined at bedside. Waiting on further workup. Gi following. Plan discussed wt bedside rn. 08/03: eval and examined at bedside. somehow ripped stitches out on face. profusely bleeding. FFP and vitamin K. transfuse as needed. 08/04: patient evaluated and examined at bedside. Resting in bed. bleeding much improved. still closely monitor. family at bedside do not feel comfortable w ith patient at home. try pt ot but suspect patient will need to return home. 08/05: Notes his abdomen has swollen further, feels worse. a little more trouble breathing today. Thinks it is August. Hb 7.5, NA 127, CR 1.3, bilirubin 14.5, albumin 1.5, INR2.8. He and his mother tearful today noting his sister of liver disease at a young age. CT abdomen pelvis reviewed bilateral basilar opacities cholelithiasis significant anasarca 08/06: Labs much worse today K5.5, CR up to 2.2, glucose 29, bilirubin 16.2, INR 6.9, Hb 7, more confused. No bleeding noted. Discussed with father at bedside overall poor prognosis. Discussed with nephrology will start his midodrine and D10 for hypoglycemia sodium bicarb for acidemia. Throughout the day patient continued to decline and at 1359 had a PEA arrest with ROSC, noted with significant bleeding from stomach with 1L bloody emesis on OGT placement. Was transferred to ICU on levophed and after long discussion with mother and father on the overall grim prognosis given likely fulminant hepatic failure and recollection that patient had told his mother he did not want to be on a ventilator and patient was terminally extubated at 1637 and was noted with no spontaneous cardiac or respiratory activity for time of Consults: GI Problem list: Liver cirrhosis suspect alcoholic. Work-up for hemochromatosis. Anemia history of alcohol use. Small volume ascites. Hx Factor 5 Leiden on home Warfarin Alcoholic hepatitis/cirrhosis - small ascites on US @ [facility] Anemia, thrombocytopenia, coagulopathy, hyponatremia, mildly elevated ammonia H/o Factor V Leiden on Warfarin w/ cheek wound Greater than 30 minutes spent on day of patient expiration including 3 visits and prolonged code Discharge Information Condition at Discharge: / Disposition/Orders: Scheduled Warfarin Sodium (Warfarin Sodium) 4 Mg Tablet, 4 MG PO DAILY for Factor 5, #30 (Reported) Entered as Reported by: HARINDER ALONSO on 07/29/21 1834 Last Taken: Unknown Dose on Unknown Date & Time Last Action: Continued on 07/31/21 1143 by MARIBETH STRONG MD Justicifation of Admission Dx: Justifications for Admission: Justification of Admission Dx: Yes MARIBETH EVANGELISTA MD Aug 07, 2021 00:04
[2021-08-08] MEDS ORDERED: IV DEXTROSE 10% 500 ML IV SCH ×2 (12:00→12:15)
== END 2021-08-06 17:48 | DRG 433 ==
LOC: 5 SOUTH 17:30 → 1 WEST ICU 08-06 15:31
PROVIDERS: ADMIT Student in an Organized Health Care Education/Training Program; ATTEND Student in an Organized Health Care Education/Training Program
PROC: 30233K1 Transfusion of Nonautologous Frozen Plasma into Peripheral Vein, Percutaneous Approach (ICD-10-PCS; principal; 2021-07-29)
PROC: 30233N1 Transfusion of Nonautologous Red Blood Cells into Peripheral Vein, Percutaneous Approach (ICD-10-PCS; 2021-07-29)
PROC: 5A1935Z Respiratory Ventilation, Less than 24 Consecutive Hours (ICD-10-PCS; 2021-08-06)
PROC: 0BH17EZ Insertion of Endotracheal Airway into Trachea, Via Natural or Artificial Opening (ICD-10-PCS; 2021-08-06)
DX: K70.31 Alcoholic cirrhosis of liver with ascites (principal); D68.51 Activated protein C resistance; E87.1 Hypo-osmolality and hyponatremia; E87.2 Acidosis; I85.10 Secondary esophageal varices without bleeding; K76.6 Portal hypertension; K92.0 Hematemesis; N17.9 Acute kidney failure, unspecified; K80.20 Calculus of gallbladder without cholecystitis without obstruction; K70.11 Alcoholic hepatitis with ascites; K72.90 Hepatic failure, unspecified without coma; D53.9 Nutritional anemia, unspecified; D69.6 Thrombocytopenia, unspecified; D72.829 Elevated white blood cell count, unspecified; E16.2 Hypoglycemia, unspecified; I46.9 Cardiac arrest, cause unspecified; I86.4 Gastric varices; K21.9 Gastro-esophageal reflux disease without esophagitis; Z20.822 Contact with and (suspected) exposure to COVID-19; Z79.01 Long term (current) use of anticoagulants; Z82.49 Family history of ischemic heart disease and other diseases of the circulatory system; Z66 Do not resuscitate; E83.119 Hemochromatosis, unspecified
CPT/HCPCS: 36415; 36430; 36600; 71260; 74177; 76705; 80053; 81001; 81256; 82140; 82436; 82607; 82805; 82962; 83540; 83550; 83690; 83935; 84133; 84300; 85014; 85018; 85025; 85027; 85610; 85730; 86703; 86705; 86709; 86803; 86850; 86900; 86901; 86920; 86927; 87340; 94002; J0171; J0744; J1940; J2060; J2250; J2270; J3411; J3430; J3490; J7030; P9016; P9017; P9041; Q9966; Q9967; 97110-GP; 97535-GO; G0378; Q0163